=== PATIENT | male | born 1990 | race Two or more races ===

== ENCOUNTER 2020-03-07 09:29 | Outpatient (REF) | payer OTHER, SELFPAY ==
--- NOTE | 2020-03-07 10:13 | XR_ITS ---
EXAMINATION: Left KNEE AND LUMBAR SPINE X-RAY CLINICAL INFORMATION: Pain COMPARISON: None TECHNIQUE: 4 views of the left knee and 3 views of the lumbar spine FINDINGS: Left knee: Bone alignment is normal. No fracture or dislocation is seen. The joint spaces are normal. There is no joint effusion. Lumbar spine: Bone alignment is normal. No fracture or dislocation is seen. Disc spaces are normal. XR/XR knee LT 3V IMPRESSION: Unremarkable exams.
--- NOTE | 2020-03-07 10:13 | XR_ITS ---
EXAMINATION: Left KNEE AND LUMBAR SPINE X-RAY CLINICAL INFORMATION: Pain COMPARISON: None TECHNIQUE: 4 views of the left knee and 3 views of the lumbar spine FINDINGS: Left knee: Bone alignment is normal. No fracture or dislocation is seen. The joint spaces are normal. There is no joint effusion. Lumbar spine: Bone alignment is normal. No fracture or dislocation is seen. Disc spaces are normal. XR/XR lumbar spine 2-3V IMPRESSION: Unremarkable exams.
[2020-03-07 10:22] LABS: MANUAL DIFF FLAG NO
[2020-03-07 10:27] LABS: Basophils Absolute Auto 0.1 X10*3/uL (0.0-0.2); Basophils Percent Auto 1.1 % (0-2); Eosinophils Absolute Auto 0.4 X10*3/uL (0.0-0.4); Eosinophils Percent Auto 3.6 % (0-4); Hematocrit 48.4 % (42-52); Hemoglobin 16.2 g/dl (14.0-18.0); Imm Gran Abs Auto 0.11 X10*3/uL (0.00-0.03); Lymphocytes Absolute Auto 3.8 X10*3/uL (1.2-4.9); Lymphocytes Percent Auto 33.3 % (20-40); Mean Corpuscular HGB Conc 33.5 g/dl (31.0-36.0); Mean Corpuscular Hemoglobin 29.3 pg (27.0-33.0); Mean Corpuscular Volume 87.5 fL (80-98); Mean Platelet Volume 10.9 fL (9.4-12.4); Monocytes Absolute Auto 0.7 X10*3/uL (0.1-1.2); Monocytes Percent Auto 6.3 % (2-11); Neutrophils Absolute Auto 6.2 X10*3/uL (2.0-8.3); Neutrophils Percent Auto 54.7 % (45-73); Platelet Count 323 X10*3/uL (160-400); Red Blood Count 5.53 X10*6/uL (4.60-5.80); Red Cell Distribution Width 12.6 % (11.0-16.0); White Blood Count 11.4 X10*3/uL (4.8-10.8)
[2020-03-07 10:54] LABS: Alanine Aminotransferase 74 U/L (0-40); Albumin Level 4.9 g/dL (3.5-5.0); Alkaline Phosphatase 92 U/L (39-117); Anion Gap 12 (12-20); Aspartate Amino Transferase 29 U/L (5-37); Bilirubin Total 0.4 mg/dL (0.0-1.0); Blood Urea Nitrogen 17 mg/dL (9-16); Calcium 9.6 mg/dL (8.4-10.2); Carbon Dioxide 29 mmol/L (22-29); Chloride 104 mmol/L (96-108); Cholesterol 204 mg/dL; Estimated Glomerular Filt Rate > 60; Glucose Fasting 101 mg/dL (60-99); HDL Cholesterol 35 mg/dL; LDL Cholesterol Calculated 136 mg/dl; Potassium 5.4 mmol/l (3.3-5.1); Sodium 140 mmol/L (135-145); Total Protein 8.2 g/dL (6.5-8.0); Triglycerides 168 mg/dL
[2020-03-07 11:00] LABS: Glucose Urine UA NEG (NEG); Leukocyte Esterase Urine NEG (NEG); Nitrite Urine NEG (NEG); PH 5.5 (5.0-8.0); Specific Gravity - Urine 1.025 (1.005-1.025); Urine Blood NEG (NEG); Urine Ketones NEG (NEG); Urine Protein NEG (NEG-TRACE)
[2020-03-07 11:02] LABS: Appearance Urine CLEAR; Color Urine YELLOW
[2020-03-07 11:14] LABS: TSH reflex Free T4 1.45 mIU/mL (0.32-4.0)
[2020-03-07 12:21] LABS: Erythrocyte Sedimentation Rate 5 MM/HR (0-15)
== END 2020-03-07 09:30 | disposition home or self-care (01) ==
LOC: HO.LAB 09:29
PROVIDERS: PCP Internal Medicine; Visit Provider Internal Medicine
DX: M25.562 Pain in left knee (principal); M54.5 Low back pain; I10 Essential (primary) hypertension; E66.01 Morbid (severe) obesity due to excess calories; Z68.43 Body mass index [BMI] 50.0-59.9, adult
CPT/HCPCS: 36415; 72100; 73562; 80053; 80061; 81003; 84443; 85025; 85652

== ENCOUNTER 2020-09-03 11:36 | Outpatient (REF) | payer OTHER, SELFPAY | END 2020-09-03 11:37 | disposition home or self-care (01) | LOC: HO.LAB 11:36 | PROVIDERS: PCP Internal Medicine; Visit Provider Internal Medicine | DX: Z20.822 Contact with and (suspected) exposure to COVID-19 (principal) | CPT/HCPCS: C9803; U0003; U0005 ==

== ENCOUNTER 2021-02-18 09:43 | Outpatient (REF) | payer OTHER, SELFPAY ==
--- NOTE | ~2021-02-18 | US_ITS ---
EXAMINATION: US ABDOMEN COMPLETE CLINICAL INFORMATION: Abnormal levels of other serum enzymes. COMPARISON: None TECHNIQUE: Real-time imaging of the abdominal viscera. FINDINGS: PANCREAS: Not visualized due to bowel gas ABDOMINAL AORTA: Not well visualized due to bowel gas INFERIOR VENA CAVA: Not well visualized due to bowel gas LIVER: The liver is normal in size and shape.Liver echotexture is increased. There is a hypoechoic area adjacent to the gallbladder, a characteristic location of focal fatty sparing. No other focal liver lesion is seen. There is no biliary duct dilatation. GALLBLADDER: Normal. The gallbladder is physiologically distended without evidence of stones, sludge, polyps, wall thickening or pericholecystic fluid. COMMON BILE DUCT: Call and difficult and slightly dilated measuring 0.8 cm in diameter. RIGHT KIDNEY: Normal. No hydronephrosis. No renal calculi or focal parenchymal lesions. The kidney measures 10.4 cm in maximum dimension. LEFT KIDNEY: Normal. No hydronephrosis. No renal calculi or focal parenchymal lesions. The kidney measures 11.0 cm in maximum dimension. SPLEEN: Normal. The spleen measures 11.5 cm in maximum dimension. FREE FLUID: None. US/US abdomen complete IMPRESSION: Echogenic liver probably representing fatty infiltration. Slightly dilated common bile duct. Nonvisualization of the pancreas IVC.
== END 2021-02-18 09:44 | disposition home or self-care (01) ==
LOC: HO.US 09:43
PROVIDERS: Visit Provider Physician Assistant
DX: R74.8 Abnormal levels of other serum enzymes (principal)
CPT/HCPCS: 76700

== ENCOUNTER 2021-03-14 09:23 | Outpatient (REF) | payer OTHER, SELFPAY ==
[2021-03-14 10:10] LABS: Hematocrit 48.8 % (42.0-52.0); Hemoglobin 16.4 g/dl (14.0-18.0); Mean Corpuscular HGB Conc 33.6 g/dl (31.0-36.0); Mean Corpuscular Hemoglobin 29.3 pg (27.0-33.0); Mean Corpuscular Volume 87.1 fL (80.0-98.0); Platelet Count 331 X10*3/uL (160-400); Red Cell Distribution Width 12.9 % (11.0-16.0); White Blood Count 8.7 X10*3/uL (4.8-10.8)
[2021-03-14 10:30] LABS: Estimated Average Glucose 105 mg/dL; Hemoglobin A1C 150.7092 umol/L; Hemoglobin A1c % 5.3 %
[2021-03-14 10:34] LABS: Creatinine Urine 192.09 mg/dL; Microalbum/Creatinine Ratio Ur 8.8 ug/mg cr
[2021-03-14 10:39] LABS: Alanine Aminotransferase 83 U/L (0-40); Albumin Level 4.5 g/dL (3.5-5.0); Alkaline Phosphatase 91 U/L (39-117); Anion Gap 10 (12-20); Aspartate Amino Transferase 36 U/L (5-37); Bilirubin Total 0.5 mg/dL (0.0-1.0); Blood Urea Nitrogen 13 mg/dL (9-16); Calcium 9.6 mg/dL (8.4-10.2); Carbon Dioxide 28 mmol/L (22-29); Chloride 104 mmol/L (96-108); Cholesterol 217 mg/dL; Estimated Glomerular Filt Rate > 60; Glucose Fasting 98 mg/dL (60-99); HDL Cholesterol 30 mg/dL; LDL Cholesterol Calculated 163 mg/dl; Potassium 4.9 mmol/L (3.3-5.1); Sodium 137 mmol/L (135-145); Total Protein 7.9 g/dL (6.5-8.0); Triglycerides 124 mg/dL
[2021-03-14 11:00] LABS: TSH reflex Free T4 1.78 uIU/mL (0.32-4.0)
== END 2021-03-14 09:24 | disposition home or self-care (01) ==
LOC: HO.LAB 09:23
PROVIDERS: PCP Physician Assistant; Visit Provider Physician Assistant
DX: I10 Essential (primary) hypertension (principal)
CPT/HCPCS: 36415; 80053; 80061; 82043; 83036; 84443; 85027

== ENCOUNTER 2022-05-27 11:25 | Outpatient (REF) | payer OTHER, SELFPAY ==
[2022-05-27 11:57] LABS: Hemoglobin 16.6 g/dl (14.0-18.0); Mean Corpuscular HGB Conc 34.6 g/dl (31.0-36.0); Mean Corpuscular Hemoglobin 29.9 pg (27.0-33.0); Mean Corpuscular Volume 86.3 fL (80.0-98.0); Mean Platelet Volume 10.7 fL (9.4-12.4); Platelet Count 330 X10*3/uL (160-400); Red Blood Count 5.56 X10*6/uL (4.60-5.80); Red Cell Distribution Width 12.9 % (11.0-16.0); White Blood Count 10.9 X10*3/uL (4.8-10.8)
[2022-05-27 12:37] LABS: Alanine Aminotransferase 67 U/L (0-40); Albumin Level 4.6 g/dL (3.5-5.0); Alkaline Phosphatase 89 U/L (39-117); Anion Gap 12 (12-20); Aspartate Amino Transferase 30 U/L (5-37); Bilirubin Total 0.8 mg/dL (0.0-1.0); Blood Urea Nitrogen 14 mg/dL (9-16); Calcium 9.5 mg/dL (8.4-10.2); Carbon Dioxide 28 mmol/L (22-29); Chloride 105 mmol/L (96-108); Estimated Glomerular Filt Rate > 60; Glucose Fasting 86 mg/dL (60-99); Potassium 4.8 mmol/L (3.3-5.1); Sodium 140 mmol/L (135-145); Total Protein 7.6 g/dL (6.5-8.0)
[2022-05-27 12:52] LABS: TSH reflex Free T4 1.69 uIU/mL (0.32-4.0)
== END 2022-05-27 11:26 | disposition home or self-care (01) ==
LOC: HO.LAB 11:25
PROVIDERS: PCP Physician Assistant; Visit Provider Physician Assistant
DX: E66.01 Morbid (severe) obesity due to excess calories (principal); Z68.38 Body mass index [BMI] 38.0-38.9, adult; I10 Essential (primary) hypertension
CPT/HCPCS: 36415; 80053; 84443; 85027

== ENCOUNTER → 2022-06-10 08:32 | Outpatient (REF) | payer OTHER, SELFPAY | LOC: HO.SL 08:32 | PROVIDERS: PCP Physician Assistant; Visit Provider Physician Assistant | DX: Z13.89 Encounter for screening for other disorder (principal) ==

== ENCOUNTER 2022-06-27 14:42 | Outpatient (REF) | payer OTHER, SELFPAY | END 2022-06-27 14:43 | disposition home or self-care (01) | LOC: HO.LAB 14:42 | PROVIDERS: Visit Provider Nurse Practitioner Family | DX: R82.998 Other abnormal findings in urine (principal) | CPT/HCPCS: 87086 ==

== ENCOUNTER 2022-06-27 15:02 | Emergency (ER) | payer OTHER, SELFPAY ==
--- NOTE | ~2022-06-27 | US_ITS ---
Indication: Pain EXAMINATION: Scrotal ultrasound and renal ultrasound. Real-time imaging by the jewel stripper. Findings; The right testicle is 3.8 x 2.7 x 3.1 cm. Volume 16.6 mL Left testicle is 3.7 x 2.8 x 3.3 cm. Volume 17.9 mL The testicles are normal in appearance. Normal arterial flow is documented. No lesion is seen. Bilateral hydroceles are seen which are mild. The epididymal structures are felt to be within normal limits. The right kidney is 9.9 x 5.3 x 4.9 cm. Within normal limits. No stone. No hydronephrosis. Left kidney is 10.3 x 5.4 x 6.2 cm. No hydronephrosis or stone. Within normal limits. US/US renal BI IMPRESSION: Bilateral small hydroceles however the testicles appear to be within normal limits bilaterally. No evidence of hydronephrosis in the kidneys
--- NOTE | ~2022-06-27 | US_ITS ---
Indication: Pain EXAMINATION: Scrotal ultrasound and renal ultrasound. Real-time imaging by the job press feeder. Findings; The right testicle is 3.8 x 2.7 x 3.1 cm. Volume 16.6 mL Left testicle is 3.7 x 2.8 x 3.3 cm. Volume 17.9 mL The testicles are normal in appearance. Normal arterial flow is documented. No lesion is seen. Bilateral hydroceles are seen which are mild. The epididymal structures are felt to be within normal limits. The right kidney is 9.9 x 5.3 x 4.9 cm. Within normal limits. No stone. No hydronephrosis. Left kidney is 10.3 x 5.4 x 6.2 cm. No hydronephrosis or stone. Within normal limits. US/US scrotum doppler IMPRESSION: Bilateral small hydroceles however the testicles appear to be within normal limits bilaterally. No evidence of hydronephrosis in the kidneys
--- NOTE | ~2022-06-27 | US_ITS ---
Indication: Pain EXAMINATION: Scrotal ultrasound and renal ultrasound. Real-time imaging by the retail selling specialist. Findings; The right testicle is 3.8 x 2.7 x 3.1 cm. Volume 16.6 mL Left testicle is 3.7 x 2.8 x 3.3 cm. Volume 17.9 mL The testicles are normal in appearance. Normal arterial flow is documented. No lesion is seen. Bilateral hydroceles are seen which are mild. The epididymal structures are felt to be within normal limits. The right kidney is 9.9 x 5.3 x 4.9 cm. Within normal limits. No stone. No hydronephrosis. Left kidney is 10.3 x 5.4 x 6.2 cm. No hydronephrosis or stone. Within normal limits. US/US scrotum IMPRESSION: Bilateral small hydroceles however the testicles appear to be within normal limits bilaterally. No evidence of hydronephrosis in the kidneys
[2022-06-27 15:15] VITALS: BP 171/96; PULSE 88; RESP 18; TEMP 36.6; O2SAT 97; BMI 35.8
--- NOTE | 2022-06-27 15:16 | ED.MALEGU ---
HPI - Male Genitourinary General Chief complaint: Urogenital-Male <LUIS Hoffman - Last Filed: 06/27/22 15:19> Stated complaint: xray for kidney, testicle pain on L side <LUIS Hoffman - Last Filed: 06/27/22 15:19> Time Seen by Provider: 06/27/22 16:51 <LUIS Hoffman - Last Filed: 06/27/22 15:19> Source: patient <Haresh Carrillo MD - Last Filed: 06/27/22 18:01> Mode of arrival: ambulatory <Haresh Carrillo MD - Last Filed: 06/27/22 18:01> Limitations: no limitations <Haresh Carrillo MD - Last Filed: 06/27/22 18:01> History of Present Illness HPI Narrative: Patient complaining of left testicular pain for last 4 days also complaining of low back pain no dysuria no frequency no hematuria no history of kidney stone no history of penile discharge no history of trauma pain is intermittent off and on very mild no nausea no vomiting <Haresh Carrillo MD - Last Filed: 06/27/22 18:01> Related Data Home medications: Previous Rx's Medication Instructions Recorded clotrimazole 1 % topical cream 1 appl topical BID 30 days #45 05/27/22 grams losartan 25 mg tablet 25 mg PO DAILY 90 days #90 tabs 05/27/22 omeprazole 20 mg capsule,delayed 20 mg PO DAILY #90 caps 05/27/22 release ibuprofen 600 mg tablet 600 mg PO Q6H PRN fever or pain 06/27/22 #30 tabs <LUIS Hoffman - Last Filed: 06/27/22 15:19> Allergies/Adverse reactions: Allergies Allergy/AdvReac Type Severity Reaction Status Date / Time No Known Allergies Allergy Verified 06/27/22 15:18 <LUIS Hoffman - Last Filed: 06/27/22 15:19> Review of Systems Review of Systems: Yes all other systems are reviewed and are negative <Haresh Carrillo MD - Last Filed: 06/27/22 18:01> PMFSH Past Medical History Medical History: Medical History Benign essential hypertension COVID-19 GERD (gastroesophageal reflux disease) Low back pain Morbid obesity with BMI of 50.0-59.9, adult <LUIS Hoffman - Last Filed: 06/27/22 15:19> Surgical History: Surgical History No pertinent past surgical history <LUIS Hoffman - Last Filed: 06/27/22 15:19> Family History Family History: Family History Father Diabetes Hypertension Hyperlipidemia Mother Hypertension Brother No problems noted. Sister In good health Son In good health Daughter In good health <LUIS Hoffman - Last Filed: 06/27/22 15:19> Social History Social History: Social History Housing: Apartment Alcohol intake: never Patient Tobacco Use Status: Never used Tobacco Tobacco use type: Cigarette Smoked in Last 30 Days: No e-Cigarette/Vaping Use: Never Used Second Hand Smoke Exposure: No Use of substances other than those prescribed or required for medical reasons: No Advance Directives: No Advance Directives Information Provided: Yes service: No Current occupational status: unemployed Cognitive needs: No Hearing needs: No Vision needs: No <LUIS Hoffman - Last Filed: 06/27/22 15:19> Physical Exam Vital Signs: Vital Signs: Last Vital Signs Temp 97.8 F 06/27/22 15:15 Pulse 88 06/27/22 15:15 Resp 18 06/27/22 15:15 BP 171/96 H 06/27/22 15:15 Pulse Ox 97 06/27/22 15:15 O2 Del Method Room Air 06/27/22 15:15 BMI result Body Mass Index 35.8 <LUIS Hoffman - Last Filed: 06/27/22 15:19> Vital Signs: Last Vital Signs Temp 97.8 F 06/27/22 15:15 Pulse 88 06/27/22 15:15 Resp 18 06/27/22 15:15 BP 171/96 H 06/27/22 15:15 Pulse Ox 97 06/27/22 15:15 O2 Del Method Room Air 06/27/22 15:15 BMI result Body Mass Index 35.8 <Haresh Carrillo MD - Last Filed: 06/27/22 18:01> GI: Inspection: Yes normal to inspection <Haresh Carrillo MD - Last Filed: 06/27/22 18:01> Palpation (GI): Soft to palpation and nontender <Haresh Carrillo MD - Last Filed: 06/27/22 18:01> Auscultation: normal bowel sounds <Haresh Carrillo MD - Last Filed: 06/27/22 18:01> : General: Yes Bimanual renal exam normal bilaterally and Yes no CVA tenderness <Haresh Carrillo MD - Last Filed: 06/27/22 18:01> Male General Exam: Yes normal external exam <Haresh Carrillo MD - Last Filed: 06/27/22 18:01> Penis: normal penis <Haresh Carrillo MD - Last Filed: 06/27/22 18:01> Meatus: meatus normal <Haresh Carrillo MD - Last Filed: 06/27/22 18:01> Scrotum: scrotum normal <Haresh Carrillo MD - Last Filed: 06/27/22 18:01> Testes: Testes normal, testicular lie normal and epididymides normal <Haresh Carrillo MD - Last Filed: 06/27/22 18:01> Back/Spine/Pelvis: Back: no CVA tenderness <Haresh Carrillo MD - Last Filed: 06/27/22 18:01> Course Course Course Narrative: RME: 31yo M w/PMHx HLD, SHIRA, GERD, HTN, presenting to the ED complaining of intermittent left testicular pain radiating to LLQ and left low back x 4 days. Reports associated dysuria. Denies nausea, vomiting, penile discharge, testicular swelling, new sexual partner/concern for STI Labs, UA, CT NG, testicular & renal ultrasound ordered Full HPI, ROS and PE to be performed by primary ED provider. <LUIS Hoffman - Last Filed: 06/27/22 15:19> Medical Decision Making Medical Decision Making MDM Narrative: Patient scrotal ultrasound negative for any torsion has slight hydrocele no hydronephrosisdischarge patient home on ibuprofen <Haresh Carrillo MD - Last Filed: 06/27/22 18:01> Lab Data [facility] Lab Attestation statement: I reviewed the patient's lab results. <Haresh Carrillo MD - Last Filed: 06/27/22 18:01> Labs: Lab Results 06/27/22 Range/Units 17:34 Urine Color Yellow Urine Appearance Clear Urine pH 6.0 (5.0-9.0) Ur Specific [place] >= 1.030 H (1.005-1.025) Urine Protein Trace (Neg-Trace) mg/dL Urine Glucose (UA) Negative (Negative) mg/dL Urine Ketones Trace (Negative) mg/dL Urine Blood Negative (Negative) Urine Nitrite Negative (Negative) Ur Leukocyte Esterase Negative (Negative) <LUIS Hoffman - Last Filed: 06/27/22 15:19> Lab Results 06/27/22 Range/Units 17:34 Urine Color Yellow Urine Appearance Clear Urine pH 6.0 (5.0-9.0) Ur Specific [place] >= 1.030 H (1.005-1.025) Urine Protein Trace (Neg-Trace) mg/dL Urine Glucose (UA) Negative (Negative) mg/dL Urine Ketones Trace (Negative) mg/dL Urine Blood Negative (Negative) Urine Nitrite Negative (Negative) Ur Leukocyte Esterase Negative (Negative) <Haresh Carrillo MD - Last Filed: 06/27/22 18:01> Radiology Impression Discussion of test interpretation with radiology: I have reviewed the radiologist's reading. <Haresh Carrillo MD - Last Filed: 06/27/22 18:01> Radiologist Impression: US/US scrotum IMPRESSION: Bilateral small hydroceles however the testicles appear to be within normal limits bilaterally. ? No evidence of hydronephrosis in the kidneys <Haresh Carrillo MD - Last Filed: 06/27/22 18:01> Discharge Plan Discharge Clinical Impression: Pain in scrotum <LUIS Hoffman - Last Filed: 06/27/22 15:19> Patient Disposition: Home, Self-Care <LUIS Hoffman - Last Filed: 06/27/22 15:19> Instructions: Scrotal Pain (ED) <LUIS Hoffman - Last Filed: 06/27/22 15:19> Additional Instructions: Cause of pain is not clear Your ultrasound is negative your urine is also negative Drink plenty of fluids Tylenol/Motrin for pain Follow-up with your PCP <LUIS Hoffman - Last Filed: 06/27/22 15:19> Prescriptions: New ibuprofen 600 mg tablet 600 mg PO Q6H PRN (Reason: fever or pain) Qty: 30 0RF No Action omeprazole 20 mg capsule,delayed release(DR/EC) 20 mg PO DAILY Qty: 90 1RF losartan 25 mg tablet 25 mg PO DAILY 90 Days Qty: 90 1RF clotrimazole 1 % cream 1 appl topical BID 30 Days Qty: 45 1RF <LUIS Hoffman - Last Filed: 06/27/22 15:19>
[2022-06-27 17:45] LABS: Appearance Urine Clear; Color Urine Yellow; Glucose Urine UA Negative (Negative); Leukocyte Esterase Urine Negative (Negative); Nitrite Urine Negative (Negative); Specific Gravity - Urine >= 1.030 (1.005-1.025); Urine Blood Negative (Negative); Urine Ketones Trace mg/dL (Negative); Urine Protein Trace mg/dL (Neg-Trace)
[2022-06-27 18:06] VITALS: BP 141/87; PULSE 71; RESP 12; TEMP 37.4; O2SAT 98
[2022-06-28 04:20] LABS: CT PCR NOT DETECTED (Not Detect.); NG PCR NOT DETECTED (Not Detect.)
== END 2022-06-27 18:08 | disposition home or self-care (01) ==
PROVIDERS: Physician Assistant; Emergency Provider Internal Medicine; PCP Physician Assistant
DX: N50.82 Scrotal pain (principal); I10 Essential (primary) hypertension; E78.5 Hyperlipidemia, unspecified; Z79.899 Other long term (current) drug therapy
CPT/HCPCS: 0353U; 76775; 76870; 81003; 93975; 99284

== ENCOUNTER → 2022-07-02 14:03 | Outpatient (REF) | payer OTHER, SELFPAY | LOC: HO.SL 14:03 | PROVIDERS: PCP Physician Assistant; Visit Provider Physician Assistant | DX: Z13.89 Encounter for screening for other disorder (principal) | CPT/HCPCS: 95806 ==

== ENCOUNTER 2022-12-30 12:40 | Outpatient (AMB) | payer OTHER, SELFPAY ==
[2022-12-30 12:46] VITALS: BP 120/92; PULSE 94; O2SAT 97; BMI 34.2
--- NOTE | 2022-12-30 12:46 | A.OFFPC_ITS ---
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 Accompanied by: Self / Same As Patient Allergies No Known Allergies Allergy (Verified 12/30/22 13:43) Medication List - Last Reconciled 12/30/22 by Onofre Parekh PA-C losartan 25 mg PO DAILY 90 days omeprazole 20 mg PO DAILY Tobacco use date assessed: 05/27/22 Dental Screening Dental Screen Date: 12/30/22 Did you have a dental visit in the last 12 months?: Yes Did you have a dental problem in the last 6 months where you did not have access to dental care?: No Was dental information given to patient?: Patient has dentist HPI Annual Exam 2 HPI Details Patient is a 32-year-old male here today for a PE.? Patient has a past medical history significant for hypertension, obesity, GERD, enzymes due to fatty liver disease. . Concern--> would like seen paperwork filled out for SSI. Hypertension:? Blood pressure acceptable today in office continues on losartan with good effect. .. GERD: Uses PPI therapy with good effect on his GERD symptoms. .. Borderline high cholesterol: Most recent lipid panel showing borderline high total cholesterol. Continues to work on lifestyle modifications to reduce his weight and high cholesterol foods. .. Obesity: He does understand his BMI is over 30 will continue working on being more physically active and better eating habits to reduce his weight. .. Vaccine : decline COVID vaccine and flu vaccine. Up-to-date with tetanus vaccine [facility] Medical History (Updated 12/30/22 @ 14:37 by Onofre Parekh PA-C) Tinea pedis COVID-19 Low back pain Morbid obesity with BMI of 50.0-59.9, adult GERD (gastroesophageal reflux disease) Benign essential hypertension Surgical History No pertinent past surgical history Family History Father Diabetes Hypertension Hyperlipidemia Mother Hypertension Brother No problems noted. Sister In good health Son In good health Daughter In good health Social History (Updated 12/30/22 @ 13:47 by Onofre Parekh PA-C) Housing: Apartment Alcohol intake: never Patient Tobacco Use Status: Never used Tobacco Tobacco use type: Cigarette e-Cigarette/Vaping Use: Never Used Second Hand Smoke Exposure: No Substance Use Type: Marijuana service: No Current occupational status: unemployed Cognitive needs: No Hearing needs: No Vision needs: No Questionnaire Thrive Questionnaire Date Thrive assessed: 05/27/22 TONE-7 AMB Questionnaire TONE-7 Date TONE - 7 assessed: 05/27/22 Source: Developed by Drs. Dash Slater, Keyana Morley, nAdry Oneill and colleagues, with an educational camden from [employer]. Review of Systems Const Denies body aches, Denies chills, Denies excessive sweating, Denies fatigue, Denies fever(s) and Denies headache(s) Eyes Denies blurry vision ENT Denies dysphagia, Denies vertigo, Denies dizziness, Denies headache(s), Denies hearing loss and Denies tinnitus Card Denies chest pain, Denies chest pain with activity, Denies syncope, Denies irregular heart rhythm and Denies dyspnea Resp Denies chest congestion, Denies cough, Denies hemoptysis, Denies dyspnea and Denies wheezing GI Denies abdominal pain, Denies melena, Denies hematochezia, Denies coffee ground emesis, Denies dysphagia, Denies diarrhea, Denies nausea and Denies vomiting Denies difficulty urinating, Denies dysuria, Denies urinary frequency, Denies urinary hesitancy and Denies urinary urgency Musc Denies arthralgias, Denies limited range of motion, Denies muscle cramps and Denies muscle weakness Skin/Breast Denies rash and Denies skin ulcer Neuro Denies Abnormal speech present, Denies confusion, Denies vertigo, Denies dizziness, Denies syncope, Denies headache(s), Denies memory loss and Denies seizure-like activity Psych Denies anxiety, Denies confusion, Denies depression, Denies memory loss, Denies panic attacks and Denies paranoia Endo Denies excessive sweating, Denies fatigue, Denies flushing, Denies polydipsia and Denies polyuria Aller/Immun Denies wheezing Physical exam (Primary Care) Vital Signs: Last Vital Signs Pulse 94 12/30/22 12:46 BP 120/92 H 12/30/22 12:46 Pulse Ox 97 12/30/22 12:46 Oxygen Delivery Method Room Air 12/30/22 12:46 BMI result Body Mass Index 34.2 BMI Assessment/Plan discussion: High Tobacco/Smoking Status: Tobacco use Status Tobacco use date assessed 05/27/22 12/30/22 12:48 Patient Tobacco Use Status Never used Tobacco 12/30/22 12:48 Tobacco use type Cigarette 12/30/22 12:48 e-Cigarette/Vaping Use Never Used 12/30/22 12:48 Thrive Assessment: Date of Thrive Assessment Date Thrive assessed 05/27/22 12/30/22 12:48 Const Other: OBESE General: cooperative, comfortable, no acute distress, alert and awake; No confusion Orientation/consciousness: oriented to person, oriented to place, patient oriented x3 and No confusion HENMT Head: Yes normocephalic Ears: external ears normal and TM's normal bilaterally Face and sinus: No sinus tenderness Mouth: Normal oral and palatal mucosa present and tongue normal Teeth and gingiva: dentition normal and gingiva normal Throat: Yes posterior oropharynx normal, Yes tonsils normal and Yes uvula midline Eyes Conjunctivae: conjunctivae normal Sclerae: sclerae normal Pupils: Equal, round and reactive pupils present EOM: EOMs intact bilaterally Direct Ophthalmoscopy: No no photophobia Neck Neck: Yes no lymphadenopathy, No tender and Yes no JVD Thyroid: Thyroid normal Carotids: no bruits Chest Chest palpation & inspection: no tenderness Resp Effort & Inspection: normal respiratory effort, no audible wheezes, not labored and no stridor Auscultation: no crackles, no rales, no rhonchi and no wheezes Cardio Jugular venous distension: no JVD Rate: regular rate, not bradycardic and not tachycardic Rhythm: regular rhythm Bruits: no carotid bruits Peripheral pulses: Peripheral pulses 2+ throughout GI Inspection: Yes normal to inspection, No abdominal wall ecchymosis and No visible herniation Palpation (GI): Soft to palpation, nontender, no guarding, not rigid and No hepatosplenomegaly present Auscultation: normoactive bowel sounds General: Yes no CVA tenderness Back/Spine/Pelvis Back: no CVA tenderness and No back tenderness Cervical Spine: cervical ROM normal Thoracic/Lumbar Spine: thoracic and lumbar spine normal to inspection, straight leg raise negative bilaterally, No thoraco-lumbar ROM limited and No lumbar spinal tenderness Skin Lesions: no lesions Rashes: no rashes Wounds: no wounds Neuro General: oriented to person, oriented to place, patient oriented x3, CN's II-XI intact bilaterally and No confusion Cranial nerves: Yes Equal, round and reactive pupils present and Yes Normal accommodation reflex present Cognition (Neuro): normal cognition Speech: No Abnormal speech present Gait exam (Neuro): Normal gait present Motor exam (neuro): 5/5 motor strength present throughout Extrem Right upper extremity: full ROM; no cyanosis Left upper extremity: full ROM; no cyanosis Right lower extremity: no edema Left lower extremity: no edema Psych Appearance: grossly normal Mental Status: mental status grossly normal Affect: normal affect Attitude: cooperative Thought process: Normal thought process present Assessment and Plan Assessment & Plan (1) Adult general medical exam: Code(s): Z00.00 - Encounter for general adult medical examination without abnormal findings (2) Benign essential hypertension: Code(s): I10 - Essential (primary) hypertension Plan: Patient's blood pressure acceptable today in office. Will continue his current dose of losartan with goal blood pressure to be below 140/90 (3) Obese: Code(s): E66.9 - Obesity, unspecified Qualifiers: Obesity type: due to excess calories Obesity classification: adult class 2 (BMI 35 - 39.9) Serious obesity comorbidity presence: with serious comorbidity Body mass index: BMI 38.0-38.9 Qualified Code(s): E66.01 - Morbid (severe) obesity due to excess calories; Z68.38 - Body mass index [BMI] 38.0- 38.9, adult Plan: Patient has lost weight since last office visit. He does understand his BMI is over 30 will continue working on being more physically active and adapting to better eating habits to reduce his weight (4) GERD (gastroesophageal reflux disease): Code(s): K21.9 - Gastro-esophageal reflux disease without esophagitis Qualifiers: Esophagitis presence: without esophagitis Qualified Code(s): K21.9 - Gastro-esophageal reflux disease without esophagitis Plan: Patient reports omeprazole effective for his GERD symptoms. Advised to avoid gastric irritants. (5) HLD (hyperlipidemia): Code(s): E78.5 - Hyperlipidemia, unspecified Qualifiers: Hyperlipidemia type: mixed hyperlipidemia Qualified Code(s): E78.2 - Mixed hyperlipidemia Plan: Patient's most recent lipid panel showing elevated total cholesterol. Has been working on low-cholesterol diet and weight reduction. Goal LDL to be below 160 Orders: Orders Microalbumin, Random (w Creat) Today I10 - Essential (primary) hypertension Lipid Panel Today E78.2 - Mixed hyperlipidemia Comprehensive [place]. Panel Fast Today I10 - Essential (primary) hypertension Medications: Refilled omeprazole 20 mg PO DAILY 90 caps 1RF K21.9 - Gastro-esophageal reflux disease without esophagitis losartan 25 mg PO DAILY 90 days 90 tabs 1RF I10 - Essential (primary) hypertension Coding Level of Care Code Est Pt Prev Care [id number]) Diagnoses Adult general medical exam Z00.00 Benign essential hypertension I10 Class 2 severe obesity due to excess calories with serious comorbidity and body mass index (BMI) of 38.0 to 38.9 in adult E66.01; Z68.38 Obesity type: due to excess calories Obesity classification: adult class 2 (BMI 35 - 39.9) Serious obesity comorbidity presence: with serious comorbidity Body mass index: BMI 38.0-38.9 Gastroesophageal reflux disease without esophagitis K21.9 Esophagitis presence: without esophagitis Mixed hyperlipidemia E78.2 Hyperlipidemia type: mixed hyperlipidemia
== END 2022-12-30 14:00 | disposition home or self-care (01) ==
PROVIDERS: Visit Provider Physician Assistant
DX: Z00.00 Encounter for general adult medical examination without abnormal findings (principal); I10 Essential (primary) hypertension; E66.01 Morbid (severe) obesity due to excess calories; Z68.38 Body mass index [BMI] 38.0-38.9, adult; K21.9 Gastro-esophageal reflux disease without esophagitis; E78.2 Mixed hyperlipidemia
CPT/HCPCS: 99395

== ENCOUNTER 2023-02-22 16:34 | Emergency (ER) | payer OTHER, SELFPAY ==
[2023-02-22 16:51] VITALS: BP 128/91; PULSE 129; RESP 18; TEMP 39.3; O2SAT 95; BMI 36.9
--- NOTE | 2023-02-22 16:55 | ED.GENADULT ---
HPI - General Adult General Chief complaint: Fever Stated complaint: vomiting,migraine,sore throat Time Seen by Provider: 02/22/23 17:10 Source: patient, RN notes reviewed and old records reviewed Mode of arrival: ambulatory History of Present Illness HPI narrative: 32-year-old male with a past medical history of obesity, GERD, HTN, presenting to the ED complaining of fever T-max 103 degrees, migraine headache, sore throat, dry cough, nausea and vomiting x3 days. Admits to taking Tylenol early this morning. Denies ear pain, difficulty/inability to swallow, chest pain/shortness of breath, recent travel Related Data Previous Rx's Medication Instructions Recorded losartan 25 mg tablet 25 mg PO DAILY 90 days #90 tabs 12/30/22 omeprazole 20 mg capsule,delayed 20 mg PO DAILY #90 caps 12/30/22 release amoxicillin 875 mg-potassium 1 tab PO BID 7 days #14 tabs 02/22/23 clavulanate 125 mg tablet Allergies Allergy/AdvReac Type Severity Reaction Status Date / Time No Known Allergies Allergy Verified 12/30/22 13:43 Review of Systems Review of Systems: Constitutional: +Fever, No Chills ENT/Mouth: No Ear Pain, + Nasal Congestion, No Sinus Pain, No Hoarseness, + sore throat, + Rhinorrhea, No Swallowing Difficulty Cardiovascular: No Chest Pain, No SOB Respiratory: + Cough, No Sputum, No Wheezing Gastrointestinal: + Nausea, + Vomiting, No Diarrhea, No Constipation, No Abdominal pain Musculoskeletal: No joint pain, No Myalgias, No Joint Swelling Skin: No Skin Lesions, No rash Neuro: No Weakness, No Numbness, No Paresthesias Yes all other systems are reviewed and are negative Constitutional: Constitutional: Reports as per [facility] Past Medical History Attestation statement: The following information was validated with the patient. Source: old records reviewed Onset Date is defined in the Problem List Problems that require an onset date and time if occurred within 24 hrs of arrival to the ED Aortic Dissection and Rupture; Neurologic impairment; Cardiopulmonary Arrest; Endotracheal Intubation; Insertion or Replacement of Mechanical Circulatory Assist Device Medical History Tinea pedis COVID-19 Low back pain Morbid obesity with BMI of 50.0-59.9, adult GERD (gastroesophageal reflux disease) Benign essential hypertension Surgical History No pertinent past surgical history Family History Family History Father Diabetes Hypertension Hyperlipidemia Mother Hypertension Brother No problems noted. Sister In good health Son In good health Daughter In good health Social History Social History Housing: Apartment Alcohol intake: never Patient Tobacco Use Status: Never used Tobacco Tobacco use type: Cigarette e-Cigarette/Vaping Use: Never Used Second Hand Smoke Exposure: No Substance Use Type: Marijuana Advance Directives: No Advance Directives Information Provided: No service: No Current occupational status: unemployed Cognitive needs: No Hearing needs: No Vision needs: No Physical Exam ED Vital Signs: Vital Signs - 24 hr 02/22/23 16:51 02/22/23 18:18 02/22/23 18:42 Temperature 102.7 F H 99.5 F Pulse Rate 129 H 125 H 103 H Respiratory Rate 18 16 Blood Pressure 128/91 H 157/83 H Pulse Oximetry 95 95 Oxygen Delivery Method Room Air Room Air BMI result Body Mass Index 36.9 Const General: cooperative, healthy appearing and no acute distress Orientation/consciousness: patient oriented x3 Limitations: no limitations HENMT Head: Yes normal to inspection and Yes atraumatic Ears: hearing grossly normal bilaterally, external ears normal, TM's normal bilaterally and mastoids normal General nose exam: Normal external nose present Face and sinus: Yes normal facial exam Mouth: no drooling Throat: Yes uvula midline, Yes abnormal tonsil (erythema), No peritonsillar mass, No uvula laterally displaced and No uvular edema Eyes General: appearance normal, both eyes and all related structures Pupils: Equal, round and reactive pupils present EOM: EOMs intact bilaterally Neck Neck: Yes normal visual inspection and Yes no meningeal signs Resp Effort & Inspection: normal respiratory effort and no respiratory distress Auscultation: clear to auscultation bilaterally, no crackles, no rhonchi and no wheezes Cardio Rate: regular rate Heart sounds: S1 normal heart sound present and S2 normal heart sound present GI Inspection: Yes normal to inspection Palpation (GI): Soft to palpation Skin Rashes: no rashes Wounds: no wounds Neuro General: patient oriented x3, gait normal, tone normal, moves all extremities, no meningeal signs, no focal motor deficits and CN's II-XI intact bilaterally Cranial nerves: Yes CN's II-XII intact bilaterally and Yes Equal, round and reactive pupils present Cognition (Neuro): normal cognition Gait exam (Neuro): Normal gait present Extrem General: Yes normal to inspection Course Course Course Narrative: RME: 32 yold male presents tot he ED for SOre throat, headache, fever, chills, and bodyaches. SARS, and strep ordred. Motrin and tyelnol ordered. For fever and tacycardia. -influenza A and rapid strep positive > patient given dose of oral Augmentin in the ED XR chest 1V IMPRESSION: Unremarkable examination. > repeat VS with mild improvement to fever to 99.5. Tachycardic to 125 > will obtain EKG. -1830--ED care transferred to [facility] pending EKG & repeat VS Medications Administered Discontinued Medications Generic Name Dose Route Start Last Admin Trade Name Brandon PRN Reason Stop Dose Admin Acetaminophen 975 mg 02/22/23 16:54 02/22/23 17:18 Acetaminophen 325 Mg Tablet PO 02/22/23 16:55 975 mg ONCE ONE Administration Amoxicillin/Clavulanate Potassium 875 mg 02/22/23 17:51 02/22/23 17:59 Amoxicillin/Potassium Clav 875 Mg Tablet PO 02/22/23 17:52 875 mg ONCE ONE Administration Ibuprofen 800 mg 02/22/23 16:53 02/22/23 17:18 Ibuprofen 800 Mg Tablet PO 02/22/23 16:54 800 mg ONCE ONE Administration Medical Decision Making Medical Decision Making [facility] Narrative: 32-year-old male with a past medical history of obesity, GERD, HTN, presenting to the ED complaining of fever T-max 103 degrees, migraine headache, sore throat, dry cough, nausea and vomiting x3 days. Admits to taking Tylenol early this morning. On exam febrile to 102.7, tachycardic likely from fever, tonsillar erythema noted, uvula midline, talking in complete sentences, lungs CTA. Concern for viral illness vs strep pharyngitis. Rule out pneumonia. Lower suspicion for COMMUNICATION COORDINATOR/retropharyngeal abscess, no evidence of otitis. Low suspicion for severe sepsis Plan: Viral testing, rapid strep, CXR, antipyretics Please refer to course for remaining clinical decision making, interpretation of labs/imaging results, and discussions with consultants and/or family members. Differential Diagnosis Differential Diagnoses: The differential diagnosis associated with the presentation includes As above Lab Data MDM Lab Attestation statement: I reviewed the patient's lab results. Labs: Lab Results 02/22/23 Range/Units 16:58 Influenza Type A (PCR) POSITIVE A (Negative) Influenza Type B (PCR) NEGATIVE (Negative) RSV RNA Qual (PCR) NEGATIVE (Negative) SARS-CoV-2 RNA (RT-PCR) NEGATIVE (Negative) S. pyogenes GrpA FARZANA Positive A (Negative) Independent Interpretation I performed an independent interpretation of an: Plain X-Ray Radiology Impression Discussion of test interpretation with radiology: I have reviewed the radiologist's reading. External Record Review External record reviewed: Inpatient record, Office record, Outpatient record, Prior outpatient labs, Prior outpatient radiology, Primary care record and Outside ED record Tests considered The following testing was considered but not selected: As above Prescription Management I considered prescription management with: Pain Medication, Antiviral and Antibiotic Discharge Plan Discharge Clinical Impression: Strep throat, Influenza A Patient Disposition: Home, Self-Care Instructions: Strep Throat (DC), Influenza (DC) Additional Instructions: You have the flu and strep throat No antibiotics are indicated at this time Make sure you are staying hydrated. Drink plenty of fluids. Rest Alternate Tylenol and Motrin at home as needed for body aches and fever Follow-up with your doctor. If symptoms persist or worsen return to the emergency department Prescriptions: New amoxicillin-pot clavulanate 875-125 mg tablet 1 tab PO BID 7 Days Qty: 14 0RF No Action losartan 25 mg tablet 25 mg PO DAILY 90 Days Qty: 90 1RF omeprazole 20 mg capsule,delayed release(DR/EC) 20 mg PO DAILY Qty: 90 1RF Referrals: Onofre Parekh PA-C [Primary Care Provider] - 5 days Stand Alone Forms: Work/School Release Print Language: Yakut
[2023-02-22 18:18] VITALS: BP 157/83; PULSE 125; RESP 16; TEMP 37.5; O2SAT 95
[2023-02-22 18:42] VITALS: PULSE 103
== END 2023-02-22 19:02 | disposition home or self-care (01) ==
PROVIDERS: Emergency Provider Student in an Organized Health Care Education/Training Program; PCP Physician Assistant
DX: J10.1 Influenza due to other identified influenza virus with other respiratory manifestations (principal); J02.0 Streptococcal pharyngitis; R50.9 Fever, unspecified; G43.909 Migraine, unspecified, not intractable, without status migrainosus; R11.2 Nausea with vomiting, unspecified; I10 Essential (primary) hypertension; Z20.822 Contact with and (suspected) exposure to COVID-19
CPT/HCPCS: 0241U; 71045; 87651; 93005; 99283; 99284

== ENCOUNTER → 2023-02-22 18:20 | Outpatient (BNV) | payer OTHER, SELFPAY | PROVIDERS: Emergency Provider Student in an Organized Health Care Education/Training Program; PCP Physician Assistant; Visit Provider Internal Medicine Cardiovascular Disease | DX: R00.0 Tachycardia, unspecified (principal) | CPT/HCPCS: 93010 ==

== ENCOUNTER 2024-01-04 13:27 | Outpatient (AMB) | payer OTHER, SELFPAY ==
--- NOTE | 2024-01-04 13:29 | MHC.PC.OV ---
Vital Signs 01/04/24 13:41 Height 5 ft 9 in Weight 272 lb BMI 40.2 BP 134/88 Blood Pressure Location Lt brachial Position Sitting Pulse 84 Pulse Source Palpation Intake Visit Reasons: pe Intake Note: Patient is here today for a physical. 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 Patient has a past medical history significant for hypertension, obesity, GERD, enzymes due to fatty liver disease. . Concern--> continues to have difficulty with skin rash over his feet bilaterally. Has tried topical antifungal treatment though has failed. The S changed to socks and shoes multiple times though has not been effective. Has also noted dry flaky scalp skin over the last few months. Has tried [id number] dandruff shampoos though have not been effective. PLAN: Will try oral antifungal for 12 weeks. Hypertension:? Blood pressure acceptable today in office continues on losartan with good effect. .. GERD: Uses PPI therapy with good effect on his GERD symptoms. .. Borderline high cholesterol: Most recent lipid panel showing borderline high total cholesterol. Continues to work on lifestyle modifications to reduce his weight and high cholesterol foods. .. Obesity: Unfortunately gained more weight since last office visit. Now BMI of over 40. He does understand his BMI is over 30 will continue working on being more physically active and better eating habits to reduce his weight. .. Vaccine : decline COVID vaccine and flu vaccine. Up-to-date with tetanus vaccine [facility] Medical History Tinea pedis COVID-19 Low back pain Morbid obesity with BMI of 50.0-59.9, adult GERD (gastroesophageal reflux disease) Benign essential hypertension Surgical History No pertinent past surgical history Family History Father Diabetes Hypertension Hyperlipidemia Mother Hypertension Brother No problems noted. Sister In good health Son In good health Daughter In good health Social History Housing: Apartment Alcohol intake: never Patient Tobacco Use Status: Never used Tobacco Tobacco use type: Cigarette e-Cigarette/Vaping Use: Never Used Second Hand Smoke Exposure: No Substance Use Type: Marijuana service: No Current occupational status: unemployed Current occupational exposures/hazards: No Cognitive needs: No Hearing needs: No Vision needs: No Questionnaire PHQ-9 Over the last 2 weeks, how often have you been bothered by any of the following problems? 1. Little interest or pleasure in doing things: not at all 2. Feeling down, depressed, or hopeless: not at all 3. Trouble falling or staying asleep, or sleeping too much: several days 4. Feeling tired or having little energy: not at all 5. Poor appetite or overeating: not at all 6. Feeling bad about yourself - or that you are a failure or have let yourself or your family down: not at all 7. Trouble concentrating on things, such as reading the newspaper or watching television: not at all 8. Moving or speaking so slowly that other people could have noticed. Or the opposite - being so fidgety or restless that you have been moving around a lot more than usual: not at all 9. Thoughts that you would be better off or of hurting yourself in some way: not at all Total score: 1 Depression Screening Interpretation: Negative Depression Screening Done: Yes 68146 - PHQ-9 Billing: Yes Source: Developed by Drs. Dash Slater, Keyana Morley, Andry Oneill and colleagues, with an educational camden from [employer]. Thrive Questionnaire Date Thrive assessed: 01/04/24 I am a: Patient What is your living situation today?: I choose not to answer this question Within the past 12 months, did the food you bought not last and you didn't have the money to get more?: I choose not to answer this question Within the past 12 months, did you worry whether your food would run out before you got money to buy more?: I choose not to answer this question Do you have trouble paying for medicines?: I choose not to answer this question Do you have trouble getting transportation to medical appointments?: I choose not to answer this question Do you have trouble paying your heating and electricity bill?: I choose not to answer this question Do you have trouble taking care of your child, family member or friend?: I choose not to answer this question Do you have trouble with day-to-day activities such as bathing, preparing meals, shopping, managing finances, etc.?: I choose not to answer this question Are you currently unemployed and looking for a job?: I choose not to answer this question Are you interested in more education?: I choose not to answer this question Please select the resources that you would like help with: None Currently or been in a relationship where the following occur: No concerns reported THRIVE Score: 0 AUDIT C Alcohol Use Questionnaire (AUDIT-C) 1. How often do you have a drink containing alcohol?: Never 3. How often do you have six or more drinks on one occasion?: Never Total Score: 0 TONE-7 AMB Questionnaire TONE-7 Date TONE - 7 assessed: 01/04/24 Feeling nervous, anxious, or on edge: 0 = Not at all Not being able to stop or control worryin = Not at all Worrying too much about different things: 0 = Not at all Trouble relaxin = Not at all Being so restless that it is hard to sit still: 0 = Not at all Becoming easily annoyed or irritable: 0 = Not at all Feeling afraid as if something awful might happen: 0 = Not at all Total TONE-7 score (0-4 normal; 5-9 mild; 10-14 moderate; 15-21 severe): 0 Source: Developed by Drs. Dash Slater, Keyana Morley, Andry Oneill and colleagues, with an educational camden from [employer]. TONE-7 Assessment Billing TONE-7 Assessment Tool: TONE-7 Assessment 91236 Review of Systems Const Denies body aches, Denies chills, Denies excessive sweating, Denies fatigue, Denies fever(s) and Denies headache(s) Eyes Denies blurry vision ENT Denies dysphagia, Denies vertigo, Denies dizziness, Denies headache(s), Denies hearing loss and Denies tinnitus Card Denies chest pain, Denies chest pain with activity, Denies syncope, Denies irregular heart rhythm and Denies dyspnea Resp Denies chest congestion, Denies cough, Denies hemoptysis, Denies dyspnea and Denies wheezing GI Denies abdominal pain, Denies melena, Denies hematochezia, Denies coffee ground emesis, Denies dysphagia, Denies diarrhea, Denies nausea and Denies vomiting Denies difficulty urinating, Denies dysuria, Denies urinary frequency, Denies urinary hesitancy and Denies urinary urgency Musc Denies arthralgias, Denies limited range of motion, Denies muscle cramps and Denies muscle weakness Skin/Breast Denies rash and Denies skin ulcer Neuro Denies Abnormal speech present, Denies confusion, Denies vertigo, Denies dizziness, Denies syncope, Denies headache(s), Denies memory loss and Denies seizure-like activity Psych Denies anxiety, Denies confusion, Denies depression, Denies memory loss, Denies panic attacks and Denies paranoia Endo Denies excessive sweating, Denies fatigue, Denies flushing, Denies polydipsia and Denies polyuria Aller/Immun Denies wheezing Physical exam (Primary Care) Vital Signs: Last Vital Signs Pulse 84 01/04/24 13:41 BP 134/88 01/04/24 13:41 BMI result Body Mass Index 40.2 Tobacco/Smoking Status: Tobacco use Status Tobacco use date assessed 01/04/24 01/04/24 13:30 Patient Tobacco Use Status Never used Tobacco 01/04/24 13:30 Tobacco use type Cigarette 01/04/24 13:30 e-Cigarette/Vaping Use Never Used 01/04/24 13:30 PHQ-9: PHQ-9 Score PHQ-9: Total score 1 01/04/24 13:42 Depression Screening Interpretation: Negative Thrive Assessment: Date of Thrive Assessment Date Thrive assessed 01/04/24 01/04/24 13:30 Currently or been in a relationship where the following occur: No concerns reported Const General: cooperative, comfortable, no acute distress, alert and awake; No confusion Orientation/consciousness: oriented to person, oriented to place, patient oriented x3 and No confusion HENMT Head: Yes normocephalic Ears: external ears normal and TM's normal bilaterally Face and sinus: No sinus tenderness Mouth: Normal oral and palatal mucosa present and tongue normal Teeth and gingiva: dentition normal and gingiva normal Throat: Yes posterior oropharynx normal, Yes tonsils normal and Yes uvula midline Eyes Conjunctivae: conjunctivae normal Sclerae: sclerae normal Pupils: Equal, round and reactive pupils present EOM: EOMs intact bilaterally Direct Ophthalmoscopy: No no photophobia Neck Neck: Yes no lymphadenopathy, No tender and Yes no JVD Thyroid: Thyroid normal Carotids: no bruits Chest Chest palpation & inspection: no tenderness Resp Effort & Inspection: normal respiratory effort, no audible wheezes, not labored and no stridor Auscultation: no crackles, no rales, no rhonchi and no wheezes Cardio Jugular venous distension: no JVD Rate: regular rate, not bradycardic and not tachycardic Rhythm: regular rhythm Bruits: no carotid bruits Peripheral pulses: Peripheral pulses 2+ throughout GI Inspection: Yes normal to inspection, No abdominal wall ecchymosis and No visible herniation Palpation (GI): Soft to palpation, nontender, no guarding, not rigid and No hepatosplenomegaly present Auscultation: normoactive bowel sounds General: Yes no CVA tenderness Back/Spine/Pelvis Back: no CVA tenderness and No back tenderness Cervical Spine: cervical ROM normal Thoracic/Lumbar Spine: thoracic and lumbar spine normal to inspection, straight leg raise negative bilaterally, No thoraco-lumbar ROM limited and No lumbar spinal tenderness Skin Lesions: no lesions Rashes: no rashes Wounds: no wounds Neuro General: oriented to person, oriented to place, patient oriented x3, CN's II-XI intact bilaterally and No confusion Cranial nerves: Yes Equal, round and reactive pupils present and Yes Normal accommodation reflex present Cognition (Neuro): normal cognition Speech: No Abnormal speech present Gait exam (Neuro): Normal gait present Motor exam (neuro): 5/5 motor strength present throughout Extrem Right upper extremity: full ROM; no cyanosis Left upper extremity: full ROM; no cyanosis Right lower extremity: no edema Left lower extremity: no edema Psych Appearance: grossly normal Mental Status: mental status grossly normal Affect: normal affect Attitude: cooperative Thought process: Normal thought process present Office Procedures Flu Questionnaire Does the patient have a severe egg allergy?: No Immunizations Fluarix Triv [id number] (PF) 45 mcg (15 mcg x 3)/0.5 mL IM syringe Performing Provider: Onofre Parekh PA-C [facility] Documented (not given) by: XIOMARA Buitrago on 01/04/24 13:42 Reason Not Given: Patient Refused Coding Level of Care Code Est Pt Prev Care 18-39y(19080) Diagnoses Annual physical exam Z00.00 Tinea pedis of right foot B35.3 Laterality: right Seborrheic dermatitis L21.9 Mixed hyperlipidemia E78.2 Hyperlipidemia type: mixed hyperlipidemia Benign essential hypertension I10 Additional Codes TONE-7 Assessment Billing - TONE-7 Assessment Tool: TONE-7 Assessment [id number] ([id number]) PHQ-9 - 94114 - PHQ-9 Billing: Yes ([id number]) Assessment & Plan Assessment & Plan (1) Annual physical exam: Code(s): Z00.00 - Encounter for general adult medical examination without abnormal findings Category: Medical Plan: As per HPI (2) Tinea pedis: Code(s): B35.3 - Tinea pedis Category: Medical Qualifiers: Laterality: right Qualified Code(s): B35.3 - Tinea pedis Plan: As per HPI patient continues to have refractory Tempus skin infections over bilateral feet. He reports he itches to the point he starts to bleed. Seems to have failed topical antifungal treatment. Will trial terbinafine 12 week oral antifungal. Will try to set with Podiatry again for further recommendation. (3) Seborrheic dermatitis: Code(s): L21.9 - Seborrheic dermatitis, unspecified Category: Medical Plan: As per HPI (4) HLD (hyperlipidemia): Code(s): E78.5 - Hyperlipidemia, unspecified Category: Medical Qualifiers: Hyperlipidemia type: mixed hyperlipidemia Qualified Code(s): E78.2 - Mixed hyperlipidemia Plan: Patient's most recent lipid panel showing borderline high total cholesterol. Unfortunately has gained weight since last office visit. He will try to work on lifestyle and dietary modifications. Goal LDL to be below 160 (5) Benign essential hypertension: Code(s): I10 - Essential (primary) hypertension Category: Medical Plan: Patient's blood pressure today in office acceptable. He will continue his current dose of antihypertensive medication with goal blood pressure to be below 140/90 Orders: Orders Influenza [id number] Immunization Today Z23 - Encounter for immunization Comprehensive [place]. Panel Fast Today I10 - Essential (primary) hypertension Lipid Panel Today E78.2 - Mixed hyperlipidemia Complete Blood Count no Diff Today I10 - Essential (primary) hypertension Referrals Podiatry Referral L21.9 - Seborrheic dermatitis, unspecified Medications: New terbinafine HCl 250 mg PO DAILY 12 weeks 84 tabs 0RF B35.3 - Tinea pedis ketoconazole 2% 1 appl topical 3XW 6 weeks 120 mL 1RF L21.9 - Seborrheic dermatitis, unspecified Refilled losartan 25 mg PO DAILY 90 days 90 tabs 1RF I10 - Essential (primary) hypertension omeprazole 20 mg PO DAILY 90 caps 1RF K21.9 - Gastro-esophageal reflux disease without esophagitis
[2024-01-04 13:41] VITALS: BP 134/88; PULSE 84; BMI 40.2
== END 2024-01-04 14:05 | disposition home or self-care (01) ==
PROVIDERS: PCP Physician Assistant; Visit Provider Physician Assistant
DX: Z00.00 Encounter for general adult medical examination without abnormal findings (principal); B35.3 Tinea pedis; L21.9 Seborrheic dermatitis, unspecified; E78.2 Mixed hyperlipidemia; I10 Essential (primary) hypertension; Z23 Encounter for immunization

== ENCOUNTER → 2024-01-04 13:27 | Outpatient (BNVA) | payer OTHER, SELFPAY | PROVIDERS: PCP Physician Assistant; Visit Provider Physician Assistant | DX: Z00.00 Encounter for general adult medical examination without abnormal findings (principal); B35.3 Tinea pedis; L21.9 Seborrheic dermatitis, unspecified; E78.2 Mixed hyperlipidemia; I10 Essential (primary) hypertension | CPT/HCPCS: 90471; 96127; 99395 ==

== ENCOUNTER 2024-01-05 10:58 | Outpatient (REF) | payer OTHER, SELFPAY ==
[2024-01-05 12:16] LABS: Hematocrit 47.2 % (42.0-52.0); Hemoglobin 16.2 g/dl (14.0-18.0); Mean Corpuscular HGB Conc 34.3 g/dl (31.0-36.0); Mean Corpuscular Hemoglobin 29.6 pg (27.0-33.0); Mean Corpuscular Volume 86.3 fL (80.0-98.0); Mean Platelet Volume 11.2 fL (9.4-12.4); Platelet Count 289 X10*3/uL (160-400); Red Blood Count 5.47 X10*6/uL (4.60-5.80); Red Cell Distribution Width 12.8 % (11.0-16.0); White Blood Count 10.6 X10*3/uL (4.8-10.8)
[2024-01-05 12:44] LABS: Albumin Level 4.2 g/dL (3.5-5.0); Alkaline Phosphatase 90 U/L (39-117); Anion Gap 7 (12-20); Aspartate Amino Transferase 34 U/L (5-37); Bilirubin Total 0.4 mg/dL (0.0-1.0); Blood Urea Nitrogen 13 mg/dL (9-16); Calcium 8.9 mg/dL (8.4-10.2); Carbon Dioxide 29 mmol/L (22-29); Chloride 109 mmol/L (96-108); Cholesterol 195 mg/dL (<200); Estimated Glomerular Filt Rate > 60; Glucose Fasting 86 mg/dL (60-99); HDL Cholesterol 32 mg/dL (>40); LDL Cholesterol Calculated 136 mg/dL (<100); Potassium 4.6 mmol/L (3.3-5.1); Sodium 140 mmol/L (135-145); Total Protein 7.5 g/dL (6.5-8.0); Triglycerides 137 mg/dL (<150)
[2024-01-05 13:01] LABS: Alanine Aminotransferase 78 U/L (0-40)
== END 2024-01-05 10:59 | disposition home or self-care (01) ==
LOC: HO.LAB 10:58
PROVIDERS: PCP Physician Assistant; Visit Provider Physician Assistant
DX: I10 Essential (primary) hypertension (principal); E78.2 Mixed hyperlipidemia
CPT/HCPCS: 36415; 80053; 80061; 85027

== ENCOUNTER 2024-06-24 14:25 | Emergency (ER) | payer OTHER, SELFPAY ==
[2024-06-24 14:35] VITALS: BP 147/94; PULSE 91; RESP 18; TEMP 36.4; O2SAT 96; BMI 41.3
--- NOTE | 2024-06-24 14:35 | ED.EYEPROB ---
HPI - Eye Problem General Stated complaint: Woke Up With Redness In Left Eye Source: patient Mode of arrival: ambulatory Limitations: no limitations History of Present Illness ED Provider: nimco carter HPI Narrative: 33 yo male with PMHx of HTN, SHIRA, GERD, States he woke up this morning and noticed something in his eye, thinks it might be blood, associated with blurry vision this morning but this has resolved. Denies injury, or mechanical rubbing, allergies, pain. States he has been compliant with his antihypertensive regimen.. Related Data Previous Rx's ?Medication ?Instructions ?Recorded ketoconazole 2 % shampoo 1 appl topical 3XW 6 weeks #120 mL 01/04/24 losartan 25 mg tablet 25 mg PO DAILY 90 days #90 tabs 01/04/24 omeprazole 20 mg capsule,delayed 20 mg PO DAILY #90 caps 01/04/24 release terbinafine HCl 250 mg tablet 250 mg PO DAILY 12 weeks #84 tabs 01/04/24 Allergies Allergy/AdvReac Type Severity Reaction Status Date / Time No Known Allergies Allergy Verified 06/24/24 14:37 Review of Systems Review of Systems: Yes all other systems are reviewed and are negative [facility] Past Medical History Attestation statement: The following information was validated with the patient. Source: old records reviewed Medical History Tinea pedis COVID-19 Low back pain Morbid obesity with BMI of 50.0-59.9, adult GERD (gastroesophageal reflux disease) Benign essential hypertension Surgical History No pertinent past surgical history Family History Family History Father Diabetes Hypertension Hyperlipidemia Mother Hypertension Brother No problems noted. Sister In good health Son In good health Daughter In good health Social History Social History Housing: Apartment Alcohol intake: never Patient Tobacco Use Status: Never used Tobacco Tobacco use type: Cigarette e-Cigarette/Vaping Use: Never Used Second Hand Smoke Exposure: No Substance Use Type: Marijuana service: No Current occupational status: unemployed Current occupational exposures/hazards: No Cognitive needs: No Hearing needs: No Vision needs: No Physical Exam Vital Signs: Appearance: Alert.?Oriented to person, place and time. No acute distress.?Normal affect. Eyes: Pupils equal, round and reactive to light.? EOMI. No nystagmus. Conjunctival hemorrhage on the left 06:00-09:00 inferior aspect. Visual acuity: Left - 20/50, Right - 20/50. Both 20/50. No chemosis. No hyphema. ? CVS: Heart sounds normal. Normal heart rate and rhythm.? Pulses normal.?? Respiratory: No respiratory distress.? Lung sounds clear to auscultation bilaterally?? Skin: Skin warm and dry.? Normal skin color.? Neuro: Moves all extremities spontaneously. Sensation intact bilaterally. Ambulates with normal steady gait. Medical Decision Making Medical Decision Making MDM Narrative: patient is a 33-year-old male with past medical history of HTN, SHIRA, GERD who presents emergency department for evaluation of atraumatic redness in the eye as per HPI, on examination has findings consistent with subconjunctival hemorrhage. He is noted to have elevated blood pressure reading in the emergency department 147/94, though he does endorse compliance with his antihypertensive regimen. This may certainly be the etiology for his symptoms today. We did discuss alternative causes such as coughing, sneezing etc. No evidence of foreign body on examination. No associated unilateral headache, fixed pupil, associated vomiting, or endorsed pressure to suggest acute angle glaucoma. No periorbital edema erythema or warmth to suggest periorbital cellulitis, no painful EOMI to suggest orbital cellulitis. Not described as a severe constant boring pain worse at night in the morning, nonradiating, to suggest scleritis. On examination does not have corneal opacity or infiltrate with foreign body sensation, mucopurulent discharge or hypopyon in the setting of a presumed recent conjunctivitis to suggest keratitis. Atraumatic in nature, not consistent with penetrating injury or globe rupture additionally no hyphema. stable for discharge home, outpatient follow-up with primary care provider Differential Diagnosis Differential Diagnoses: The differential diagnosis associated with the presentation includes (See narrative above) Independent Historian Clinical information obtained from an independent historian. History obtained from or confirmed by: Spouse External Record Review External record reviewed: Outpatient record Chronic Conditions Patient?s care impacted by: Other ( see narrative above) Discharge Plan Discharge Clinical Impression: Hypertension Subconjunctival hemorrhage Qualifiers: Laterality: left Qualified Code(s): H11.32 - Conjunctival hemorrhage, left eye Patient Disposition: Home, Self-Care Additional Instructions: This will resolve on its own with time. Avoid rubbing the eye as this may worsen the current presentation. as discussed, monitor your blood pressure readings over the next 2 weeks. I suggest checking this 3 times weekly in the morning 1-2 hours after taking your blood pressure medication when you are not under stress, legs uncrossed, With an appropriate fitting cuff. Please write down these blood pressure readings and review this with your primary care doctor. If they are persistently elevated they may consider making changes to your blood pressure medication. Return to emergency department any new or worsening symptoms or concerns. Prescriptions: No Action losartan 25 mg tablet 25 mg PO DAILY 90 Days Qty: 90 1RF omeprazole 20 mg capsule,delayed release(DR/EC) 20 mg PO DAILY Qty: 90 1RF ketoconazole 2 % shampoo 1 appl topical 3XW 42 Days Qty: 120 1RF terbinafine HCl 250 mg tablet 250 mg PO DAILY 84 Days Qty: 84 0RF Referrals: Onofre Parekh PA-C [Primary Care Provider] - Print Language: Japanese
--- OUTSIDE RECORDS SUMMARY | 2024-06-24 14:46 | XMS_ITS | Clinical Summary ---
Author Organization [address] [facility] Address [address] [place] [address] Phone Care Team Providers Care Freight Sorter Name Role Phone Onofre Parekh Primary Care Provider Social History Tobacco Use Types Packs/Day Years Used Date Smoking Tobacco: Never Assessed Sex and Gender Information Value Date Recorded Sex Assigned at Not on file Legal Sex Male 9:32 AM EST Gender Identity Not on file Sexual Orientation Not on file Plan of Treatment Health Maintenance Due Date Last Done Comments Hepatitis B Vaccines (1 of 3 - 19+ 3-dose series) 08/01/2010 COVID-19 Vaccine ( - 2023-2 5 season) 2023 Depression Screening 01/07/2024 HIV Screening 01/07/2024 Hepatitis C Screening 01/07/2024 Social Influencers of Health Screening 01/07/2024 Influenza Vaccine (Season Ended) 2024 DTaP,Tdap,and Td Vaccines (2 - Td or Tdap) 08/24/2028 08/24/2018 HIB Vaccines Aged Out No longer eligi ble based on patient's age to complete this topic HPV Vaccines Aged Out No longer eligi ble based on patient's age to complete this topic Hepatitis A Vaccines Aged Out No long er eligible based on patient's age to complete this topic IPV Vaccines Aged Out No longer eligi ble based on patient's age to complete this topic MMR Vaccines Aged Out No longer eligi ble based on patient's age to complete this topic Meningococcal ACWY Vaccine Aged Out N o longer eligible based on patient's age to complete this topic Meningococcal B Vaccine Aged Out No l onger eligible based on patient's age to complete this topic Pneumococcal Vaccine: Pediat rics (0 to 5 Years) and At-Risk Patients (6 to 64 Years) Aged Out No longer eligi ble based on patient's age to complete this topic RSV Immunization Patients Un jarvis 20 months Aged Out No longer eligible b ased on patient's age to complete this topic Varicella Vaccines Aged Out No longer eligible based on patient's age to complete this topic Insurance Care Teams Freight Sorter Relationship Specialty Start Date End Date Onofre Parekh PA PCP - General Physician [employer] Consultant 01/07/24
[2024-06-24 15:27] VITALS: BP 147/94; PULSE 91; RESP 18; TEMP 36.4; O2SAT 96
== END 2024-06-24 15:27 | disposition home or self-care (01) ==
PROVIDERS: Emergency Provider Emergency Medicine Emergency Medical Services; PCP Physician Assistant
DX: I10 Essential (primary) hypertension (principal); H11.32 Conjunctival hemorrhage, left eye; E78.5 Hyperlipidemia, unspecified; Z79.899 Other long term (current) drug therapy
CPT/HCPCS: 99282

== ENCOUNTER 2024-10-16 07:23 | Emergency (ER) | payer OTHER, SELFPAY ==
[2024-10-16 07:25] VITALS: BP 151/88; PULSE 77; RESP 18; TEMP 36.3; O2SAT 98; BMI 40.4
--- NOTE | 2024-10-16 07:39 | PC.NURSE ---
L upper eyelid swollen; no drainage noted at this time; pt reports eye irritated and upper eyelid sore to touch; denies visual changes, injuries or known allergens
--- OUTSIDE RECORDS SUMMARY | 2024-10-16 07:45 | XMS_ITS | Clinical Summary ---
Author Organization [address] [facility] Address [address] [place] [address] Phone Care Team Providers Care Soda Room Operator Name Role Phone Onofre Parekh Primary Care [...] - 19+ 3-dose series) 08/01/2010 COVID-19 Vaccine (1 - 2023-2 5 season) 2023 HIV Screening 01/07/2024 Hepatitis C Screening 01/07/2024 Social Influencers of Health Screening 01/07/2024 Depression Screening 02/17/2024 Influenza Vaccine (#1) 2024 DTaP,Tdap,and Td Vaccines (2 - Td [...] 5 Years) and At-Risk Patients (6 to 49 Years) Aged Out No longer eligi ble based on patient's age to complete this topic RSV Immunization Patients Un jarvis 20 months Aged Out No longer eligible b ased on patient's age to complete this topic Varicella Vaccines Aged Out No longer eligible based on patient's age to [place] [address] Care Teams Soda Room Operator Relationship Specialty Start Date End Date Onofre Parekh PA PCP - General Physician Corrugator Operator Helper 01/07/24
--- NOTE | 2024-10-16 08:01 | ED_ITS ---
HPI - General Adult General Chief complaint: Eye Problems Stated complaint: L Eye Pain Swelling Time Seen by Provider: 10/16/24 08:00 Source: patient Mode of arrival: ambulatory Limitations: no limitations History of Present Illness ED Provider: Yvonne Rousseau PA-C HPI narrative: Patient is a 34 year-old assigned male at with HTN, obesity, HLD, GERD presenting to the emergency department with concerns of left eye swelling and pain. The patient reports he awoke this morning to a completely swollen closed eye with crusty discharge that he was able to wipe off with water. The left eye swelling started this morning, but he reports left eye pain starting on Thursday. He denies any vision changes, double vision, blurry vision, headaches, dizziness, chest pain, SOB, nausea, vomiting, abdominal pain. He reports no sick contacts and no recent illness. Onset (ago): day(s) (3) Related Data Previous Rx's ?Medication ?Instructions ?Recorded ketoconazole 2 % shampoo 1 appl topical 3XW 6 weeks # 120 mL 01/04/24 omeprazole 20 mg capsule,delayed 20 mg PO DAILY #90 ca ps 01/04/24 release terbinafine HCl 250 mg tablet 250 mg PO DAILY 12 weeks #84 tabs 01/04/24 losartan 25 mg tablet 25 mg PO DAILY 90 days #90 t abs 09/21/24 erythromycin 5 mg/gram (0.5 %) eye 0.5 inch ophthalmic (eye) Q4H #3.5 10/16/24 ointment grams Allergies Allergy/AdvReac Type Severity Reaction Status Date / Time No Known Allergies Allergy Verified 10/16/24 07:27 Review of Systems Constitutional: Constitutional: Denies chills, Denies fever(s) and Denies headache(s) Eyes: Eyes: Reports as per HPI, Denies blurry vision, Denies change in vision, Denies diplopia and Denies photophobia Comments: left eye pain, swelling, discharge ENT: Reports as per HPI, Denies dizziness and Denies headache(s) Cardiovascular: Cardiovascular: Reports as per HPI, Denies chest pain, Denies lightheadedness and Denies dyspnea Respiratory: Respiratory: Reports as per HPI, Denies cough and Denies dyspnea Gastrointestinal: Gastrointestinal: Reports as per HPI, Denies abdominal pain, Denies nausea and Denies vomiting Genitourinary: Genitourinary: Reports as per HPI Musculoskeletal: Musculoskeletal: Reports as per HPI Neurologic: Reports as per HPI, Denies dizziness and Denies headache(s) Psychiatric: Psychiatric: Reports as per HPI Endocrine: Endocrine: Reports as per HPI Hematologic/Lymphatic: Hematologic/Lymphatic: Reports as per HPI Allergic/Immunologic: Allergic/Immunologic: Reports as per HPI [facility] Past Medical History Attestation statement: The following information was validated with the patient. (patient's girlfriend validated all information) Source: old records reviewed, nursing notes reviewed and other (patient's girlfriend provided additional history and confirmed the history provided by the patient. ) Medical History Tinea pedis COVID-19 Low back pain Morbid obesity with BMI of 50.0-59.9, adult GERD (gastroesophageal reflux disease) Benign essential hypertension Surgical History No pertinent past surgical history Family History Family History Father Diabetes Hypertension Hyperlipidemia Mother Hypertension Brother No problems noted. Sister In good health Son In good health Daughter In good health Social History Social History Housing: Apartment Alcohol intake: never Patient Tobacco Use Status: Never used Tobacco Tobacco use type: Cigarette e-Cigarette/Vaping Use: Never Used Second Hand Smoke Exposure: No Substance Use Type: Marijuana Advance Directives: No Advance Directives Information Provided: No service: No Current occupational status: unemployed Current occupational exposures/hazards: No Cognitive needs: No Hearing needs: No Vision needs: No Physical Exam ED Vital Signs: Vital Signs - 24 hr 10/16/24 07:25 10/16/24 08:45 Temperature 97.3 F 97.3 F Pulse Rate 77 77 Respiratory Rate 18 18 Blood Pressure 151/88 H 152/82 H Pulse Oximetry 98 98 Oxygen Delivery Method Room Air Room Air BMI result Body Mass Index 40.4 Const General: cooperative, no acute distress, alert and awake Nutritional Appearance: well nourished Orientation/consciousness: patient oriented x3 HENMT Head: Yes normal to inspection and Yes atraumatic Ears: hearing grossly normal bilaterally and external ears normal General nose exam: Normal external nose present, no nasal discharge noted and no epistaxis Face and sinus: Yes normal facial exam, No abrasion and No laceration Mouth: Normal oral and palatal mucosa present, no drooling and no muffled voice Eyes Other: left upper eyelid swollen Pupils: Equal, round and reactive pupils present EOM: EOMs intact bilaterally Direct Ophthalmoscopy: No photophobia Neck Neck: Yes normal visual inspection and Yes full ROM Resp Effort & Inspection: normal respiratory effort and able to speak in complete sentences Neuro General: patient oriented x3, moves all extremities and CN's II-XI intact bilaterally Cranial nerves: Yes Equal, round and reactive pupils present Cognition (Neuro): normal cognition Extrem General: Yes normal to inspection, Yes full ROM and Yes capillary refill normal Psych Appearance: grossly normal Mental Status: mental status grossly normal Affect: normal affect Attitude: cooperative Thought process: Normal thought process present Thought content: Normal thought content present Insight: Good insight present (Psych) Medical Decision Making Medical Decision Making MDM Narrative: Patient is a 34 year-old assigned male at with HTN, obesity, HLD, GERD presenting to the emergency department with concerns of left eye swelling and pain.. Patient's physical exam was as noted in the physical exam portion of this note. Patient's left upper eye lid was somewhat swollen with minimal discharge present - consistent with a conjunctivitis. I explained my physical exam findings to the patient and the patient's girlfriend. I answered all questions asked by the patient and the patient's girlfriend. I stressed the importance of the patient taking his medication as directed (either prescribed or as the over the counter packaging recommends). I stressed the importance of the patient following up with his primary care provider. I stressed the importance of the patient returning to the emergency department immediately if his symptoms were to worsen or if he were to develop any dizziness, shortness of breath, difficulty breathing, chest pain, blurry vision, loss of vision, nausea, vomiting, abdominal pain, fever, chills, back pain, or any other complaints. Patient and the patient's girlfriend verbalized agreement and understanding with this treatment plan and discharge. Differential Diagnosis Differential Diagnoses: The differential diagnosis associated with the presentation includes Conjunctivitis Stye Admission/Observation Consideration of admission/observation: Escalation of care including admi ssion/observation considered Patient would have been admitted to the hospital had his clinical presentation warranted hospital admission. Independent Historian Clinical information obtained from an independent historian. History obtained from or confirmed by: Other (patient's girlfriend provided additional history and confirmed the history provided by the patient. ) Prescription Management I considered prescription management with: Antibiotic (patient prescribed an antibiotic for probable left conjunctivitis) Discharge Plan Discharge Clinical Impression: Conjunctivitis Patient Disposition: Home, Self-Care Instructions: Conjunctivitis (ED) Additional Instructions: Your exam is concerning for conjunctivitis (pink eye). Use your antibiotic ointment as prescribed. Apply warm compresses to the area. IF you are prescribed home medications and/or you are taking over the counter medications at home - it is very important you continue to do so as prescribed / directed unless told otherwise. Follow up with your primary care provider. Return to the emergency department immediately if your symptoms worsen or if you develop any numbness, tingling, dizziness, shortness of breath, difficulty breathing, chest pain, blurry vision, loss of vision, nausea, vomiting, abdominal pain, fever, chills, back pain, or any other complaints. Please see the information below about our Patient Portal. If you are not yet enrolled in the [facility] Patient Portal, you will receive an enrollment email invitation following your visit to any [facility] care setting. You may also self-enroll in the Patient Portal by visiting our website: [email or web address] The following information is required to access the Patient Portal: - Your [facility] Medical Record Number - Your personal home email address (must match what is in your electronic medical record, Registration staff can assist with this) - Name - Date of Capabilities of the Patient Portal: - Message some providers - View upcoming appointments - Access your health summary, medical history, and visit history - View current conditions and allergies - View procedure and lab results - View your medications, including guidelines, side effects, and precautions - Complete pre-appointment questionnaires requested by your provider - Ready summary reports of your office visits and procedures To access the Patient Portal Mobile [employer]ora, follow these directions: - Search [employer] in the Lora Store or Google Play Store - Download the Lora - Search for [facility] - Enter your login/password Prescriptions: New erythromycin 5 mg/gram (0.5 %) ointment 0.5 inch ophthalmic (eye) Q4H Qty: 3.5 0RF No Action losartan 25 mg tablet 25 mg PO DAILY 90 Days Qty: 90 1RF omeprazole 20 mg capsule,delayed release(DR/EC) 20 mg PO DAILY Qty: 90 1RF ketoconazole 2 % shampoo 1 appl topical 3XW 42 Days Qty: 120 1RF terbinafine HCl 250 mg tablet 250 mg PO DAILY 84 Days Qty: 84 0RF Referrals: Onofre Parekh PA-C [Primary Care Provider, Internal Medicine] Interventions: ED Discharge Assessment Last Done: 10/16/24 08:45 Discharge Date/Time: 10/16/24 08:45 Print Language: Pashto
[2024-10-16 08:45] VITALS: BP 152/82; PULSE 77; RESP 18; TEMP 36.3; O2SAT 98
== END 2024-10-16 08:45 | disposition home or self-care (01) ==
PROVIDERS: Emergency Provider Emergency Medicine; PCP Physician Assistant
DX: H10.9 Unspecified conjunctivitis (principal); I10 Essential (primary) hypertension; Z79.899 Other long term (current) drug therapy
CPT/HCPCS: 99283

== ENCOUNTER 2024-10-25 12:48 | Emergency (ER) | payer OTHER, SELFPAY ==
[2024-10-25 12:58] VITALS: BP 189/103; PULSE 55; RESP 18; TEMP 36.8; O2SAT 100; BMI 40.0
--- NOTE | 2024-10-25 12:58 | ED_ITS ---
HPI - Eye Problem General Chief complaint: Eye Problems Stated complaint: eye issue Time Seen by Provider: 10/25/24 13:12 Source: patient and RN notes reviewed Mode of arrival: ambulatory Limitations: no limitations History of Present Illness ED Provider: Hanh Ellsworth PA-C HPI Narrative: This is a 34-year-old male, with no known medical problems, who presents to the emergency department with concerns of right lower eyelid swelling for the last several days. Patient states that he was seen here about a week and a half ago and was diagnosed with conjunctivitis and was treated with erythromycin ointment. He started using this in his other eye and has noticed no improvement. He denies any fevers or chills. No changes to his vision, no double vision, no pain with eye movements. No fevers. He does not wear contact lenses. No injury to his eye. Denies history of similar symptoms in the past. No other complaints or concerns at this time. Onset (ago): day(s) Onset description: gradual Duration: constant Location: right eye Associated symptoms: none Treatments Prior to Arrival: other (Erythromycin ointment) Related Data Previous Rx's ?Medication ?Instructions ?Recorded ketoconazole 2 % shampoo 1 appl topical 3XW 6 weeks # 120 mL 01/04/24 omeprazole 20 mg capsule,delayed 20 mg PO DAILY #90 ca ps 01/04/24 release terbinafine HCl 250 mg tablet 250 mg PO DAILY 12 weeks #84 tabs 01/04/24 losartan 25 mg tablet 25 mg PO DAILY 90 days #90 t abs 09/21/24 erythromycin 5 mg/gram (0.5 %) eye 0.5 inch ophthalmic (eye) Q4H #3.5 10/16/24 ointment grams amoxicillin 875 mg-potassium 1 tab PO BID 7 days #14 t abs 10/25/24 clavulanate 125 mg tablet erythromycin 5 mg/gram (0.5 %) eye 0.5 inch ophthalmic (eye) QID #3.5 10/25/24 ointment grams ibuprofen 600 mg tablet 600 mg PO Q6H PRN pain #30 t abs 10/25/24 Allergies Allergy/AdvReac Type Severity Reaction Status Date / Time No Known Allergies Allergy Verified 10/25/24 12:59 Review of Systems Review of Systems: Constitutional : No Fever, No Chills ENT/Mouth : No sore throat, No Rhinorrhea Eyes: No Eye Pain, No Redness, +lower eyelid swelling Cardiovascular : No Chest Pain, No SOB Respiratory : No Cough, No Sputum Gastrointestinal : No Nausea, No Vomiting, No Diarrhea, No abdominal Pain Genitourinary : No Dysuria, No Hematuria Musculoskeletal : No joint pain, No Myalgias, No Joint Swelling Skin : No Skin Lesions Neuro : No Weakness, No Numbness, No Headache All other systems reviewed and are negative Yes all other systems are reviewed and are negative Constitutional: Constitutional: Reports as per [facility] Past Medical History Medical History Tinea pedis COVID-19 Low back pain Morbid obesity with BMI of 50.0-59.9, adult GERD (gastroesophageal reflux disease) Benign essential hypertension Surgical History No pertinent past surgical history Family History Family History Father Diabetes Hypertension Hyperlipidemia Mother Hypertension Brother No problems noted. Sister In good health Son In good health Daughter In good health Social History Social History Housing: Apartment Alcohol intake: never Patient Tobacco Use Status: Never used Tobacco Tobacco use type: Cigarette e-Cigarette/Vaping Use: Never Used Second Hand Smoke Exposure: No Substance Use Type: Marijuana Advance Directives: No Advance Directives Information Provided: Yes service: No Current occupational status: unemployed Current occupational exposures/hazards: No Cognitive needs: No Hearing needs: No Vision needs: No Physical Exam Exam: Exam: General: Awake, alert, and oriented X3. No acute distress. HEENT: Right eye conjunctiva is noninjected, at the lower lid just lateral to the medial canthus, there is a 2 mm punctate lesion, tender to palpation, erythematous, no drainage. PERRLA, EOMI. No periorbital edema. No pain with eye movements. CVS: Normal heart rate and rhythm. Pulses normal. Respiratory: No respiratory distress Skin: Warm, dry, no rashes noted to exposed skin. Normal skin color. Normal skin turgor. Extremities: Normal to inspection Neuro: Oriented X 3. No motor deficit. No sensory deficit. Vital Signs: Vital Signs: Last Vital Signs Temp 98.2 F 10/25/24 13:15 Pulse 55 10/25/24 13:15 Resp 18 10/25/24 13:15 BP 189/103 H 10/25/24 13:15 Pulse Ox 100 10/25/24 13:15 O2 Del Method Room Air 10/25/24 13:15 BMI result Body Mass Index 40.0 Medical Decision Making Medical Decision Making MDM Narrative: This is a 34-year-old male who presents emergency department with concerns of right lower eyelid pain and swelling. On arrival, vital signs revealed that he is hypertensive at 189/103, he denies any chest pain or shortness for breath. He does have a history of hypertension and has been taking his medications as prescribed. He states that his blood pressure cuff at home has stopped working. He denies any vision changes, headache, chest pain, shortness of breath. I encouraged patient to get a blood pressure cuff to monitor this. I also informed patient that he needs to apply warm compresses to his right lower lid as his exam is consistent with a stye. No evidence of periorbital cellulitis or orbital cellulitis. We will also treat with Augmentin as he has been on erythromycin which he was given several days ago for conjunctivitis here in the emergency room for his left eye however he states that he has not had any improvement. Given strict return precautions. He understands and agrees with plan. Patient stable for discharge Differential Diagnosis Differential Diagnoses: The differential diagnosis associated with the presentation includes Stye, orbital cellulitis, periorbital cellulitis, conjunctivitis Discharge Plan Discharge Clinical Impression: Hordeolum externum of right lower eyelid, Elevated blood pressure reading Patient Disposition: Home, Self-Care Instructions: [place] (ED) Additional Instructions: You were seen in the emergency department due to right lower eyelid swelling. You have a stye. This is an infection that requires antibiotic treatment for. Continue using the erythromycin ointment as prescribed. Also take Augmentin as prescribed, finish the entire course even if your symptoms improve. Warm compresses 5-6 times per day. This area will likely rupture, however this may take several days for it to resolve. You can alternate between ibuprofen and or Tylenol as needed for pain. Your blood pressure was found to be elevated, I am recommending you check your blood pressure daily, please obtain a blood pressure cuff for monitoring. Prescriptions: New erythromycin 5 mg/gram (0.5 %) ointment 0.5 inch ophthalmic (eye) QID Qty: 3.5 0RF ibuprofen 600 mg tablet 600 mg PO Q6H PRN (Reason: pain) Qty: 30 0RF amoxicillin-pot clavulanate 875-125 mg tablet 1 tab PO BID 7 Days Qty: 14 0RF No Action losartan 25 mg tablet 25 mg PO DAILY 90 Days Qty: 90 1RF erythromycin 5 mg/gram (0.5 %) ointment 0.5 inch ophthalmic (eye) Q4H Qty: 3.5 0RF omeprazole 20 mg capsule,delayed release(DR/EC) 20 mg PO DAILY Qty: 90 1RF ketoconazole 2 % shampoo 1 appl topical 3XW 42 Days Qty: 120 1RF terbinafine HCl 250 mg tablet 250 mg PO DAILY 84 Days Qty: 84 0RF Interventions: ED Discharge Assessment Last Done: 10/25/24 13:15 Discharge Date/Time: 10/25/24 13:16 Print Language: Tristanian
[2024-10-25 13:15] VITALS: BP 189/103; PULSE 55; RESP 18; TEMP 36.8; O2SAT 100
--- OUTSIDE RECORDS SUMMARY | 2024-10-25 15:31 | XMS_ITS | Clinical Summary ---
Author Organization [address] [facility] Address [address] [place] [address] Phone Care Team Providers Care Application Support Intern Name Role Phone Onofre Parekh Primary Care [...] to complete this topic Insurance Care Teams Application Support Intern Relationship Specialty Start Date End Date Onofre Parekh PA PCP - General Physician Drilling Machine Operator 01/07/24
== END 2024-10-25 13:16 | disposition home or self-care (01) ==
PROVIDERS: Emergency Provider Emergency Medicine; PCP Internal Medicine
DX: H00.012 Hordeolum externum right lower eyelid (principal); R03.0 Elevated blood-pressure reading, without diagnosis of hypertension
CPT/HCPCS: 99282; 99283

== ENCOUNTER 2025-01-09 11:10 | Outpatient (AMB) | payer OTHER, SELFPAY ==
--- NOTE | 2025-01-09 11:57 | A.OFFPC_ITS ---
Vital Signs 01/09/25 11:58 Height 5 ft 9 in Weight 272 lb 2 oz BMI 40.2 BP 120/62 Blood Pressure Location Lt brachial Position Sitting Pulse 68 Pulse Source Pulse Oximeter Temp 97.3 F Temp Source Temporal Artery Scan Pulse Oximetry (%) 96 Oxygen Delivery Method Room Air Intake Visit Reasons: PE Intake Note: Patient is here today for a physical. Investigative Agent Required: No Auto Clutch Specialist: Present Accompanied by: Spouse Allergies No Known Allergies Allergy (Verified 01/09/25 12:08) Medication List - Last Reconciled 01/09/25 by Onofre Parekh PA-C erythromycin 0.5 inches ophthalmic (eye) QID ibuprofen 600 mg PO Q6H PRN ketoconazole 2% 1 appl topical 3XW 6 weeks losartan 25 mg PO DAILY 90 days omeprazole 20 mg PO DAILY Tobacco use date assessed: 01/09/25 Dental Screening Dental Screen Date: 01/09/25 Did you have a dental visit in the last 12 months?: Yes Did you have a dental problem in the last 6 months where you did not have access to dental care?: No Was dental information given to patient?: Patient has dentist HPI PE HPI Details Patient is a 34-year-old male here today for a PE.? Patient has a past medical history significant for hypertension, obesity, GERD, enzymes due to fatty liver disease. . Concern--> chronic low back pain--> The patient reports significant lower back pain that is not relieved by Motrin, Tylenol, [id number] muscle relaxers, or topical hot and cold patches. There was no recent injury, and the pain is localized to the lower back without radiation into the legs. An X-ray of the back from 2020 was unremarkable. Hypertension:? Blood pressure acceptable today in office continues on losartan with good effect. .. GERD: Uses PPI therapy with good effect on his GERD symptoms. .. Borderline high cholesterol: Most recent lipid panel showing borderline high total cholesterol. Continues to work on lifestyle modifications to reduce his weight and high cholesterol foods. .. class 3 Obesity: Patient's BMI remains above 40. Has not gained any weight since last office visit. The patient is attempting to lose weight through a strict diet and exercise but has not been successful. The exercise regimen includes walking, jumping jacks, pushups, situps, and pullups performed twice a day, three days a week. Dietary habits include often skipping breakfast and sometimes eating only one meal at dinner, with intake of fruits and vegetables. .. Vaccine : decline COVID vaccine and flu vaccine. Up-to-date with tetanus vaccine [facility] Medical History (Updated 01/09/25 @ 13:11 by Onofre Parekh PA-C) Tinea pedis COVID-19 Low back pain GERD (gastroesophageal reflux disease) Benign essential hypertension Surgical History No pertinent past surgical history Family History Father Diabetes Hypertension Hyperlipidemia Mother Hypertension Brother No problems noted. Sister In good health Son In good health Daughter In good health Social History Housing: Apartment Alcohol intake: never Patient Tobacco Use Status: Never used Tobacco Tobacco use type: Cigarette e-Cigarette/Vaping Use: Never Used Second Hand Smoke Exposure: No Substance Use Type: Marijuana service: No Current occupational status: unemployed Current occupational exposures/hazards: No Cognitive needs: No Hearing needs: No Vision needs: No Questionnaire PHQ-9 Over the last 2 weeks, how often have you been bothered by any of the following problems? 1. Little interest or pleasure in doing things: several days 2. Feeling down, depressed, or hopeless: not at all 3. Trouble falling or staying asleep, or sleeping too much: several days 4. Feeling tired or having little energy: several days 5. Poor appetite or overeating: several days 6. Feeling bad about yourself - or that you are a failure or have let yourself or your family down: not at all 7. Trouble concentrating on things, such as reading the newspaper or watching television: not at all 8. Moving or speaking so slowly that other people could have noticed. Or the opposite - being so fidgety or restless that you have been moving around a lot more than usual: not at all 9. Thoughts that you would be better off or of hurting yourself in some way: not at all Total score: 4 Depression Screening Interpretation: Positive Depression Screening Follow-up: Existing condition Depression Screening Done: Yes 74163 - PHQ-9 Billing: Patient declined-do not bill Source: Developed by Drs. Dash Slater, Keyana Morley, Andry Oneill and colleagues, with an educational camden from [employer]. Thrive Questionnaire Date Thrive assessed: 01/04/25 I am a: Patient What is your living situation today?: I choose not to answer this question Within the past 12 months, did the food you bought not last and you didn't have the money to get more?: I choose not to answer this question Within the past 12 months, did you worry whether your food would run out before you got money to buy more?: I choose not to answer this question Do you have trouble paying for medicines?: No Do you have trouble getting transportation to medical appointments?: No Do you have trouble paying your heating and electricity bill?: No Do you have trouble taking care of your child, family member or friend?: No Do you have trouble with day-to-day activities such as bathing, preparing meals, shopping, managing finances, etc.?: Yes Are you currently unemployed and looking for a job?: I choose not to answer this question Are you interested in more education?: No Please select the resources that you would like help with: None Currently or been in a relationship where the following occur: No concerns reported THRIVE Score: 0 AUDIT C Alcohol Use Questionnaire (AUDIT-C) 1. How often do you have a drink containing alcohol?: Never Total Score: 0 TONE-7 AMB Questionnaire TONE-7 Date TONE - 7 assessed: 01/09/25 Feeling nervous, anxious, or on edge: 1 = Several days Not being able to stop or control worryin = Several days Worrying too much about different things: 1 = Several days Trouble relaxin = Several days Being so restless that it is hard to sit still: 1 = Several days Becoming easily annoyed or irritable: 1 = Several days Feeling afraid as if something awful might happen: 0 = Not at all Total TONE-7 score (0-4 normal; 5-9 mild; 10-14 moderate; 15-21 severe): 6 Source: Developed by Drs. Dash Slater, Andry Nava and colleagues, with an educational camden from [employer]. TONE-7 Assessment Billing TONE-7 Assessment Tool: TONE-7 Assessment 98686 Review of Systems Const Denies body aches, Denies chills, Denies excessive sweating, Denies fatigue, Denies fever(s) and Denies headache(s) Eyes Denies blurry vision ENT Denies dysphagia, Denies vertigo, Denies dizziness, Denies headache(s), Denies hearing loss and Denies tinnitus Card Denies chest pain, Denies chest pain with activity, Denies syncope, Denies irregular heart rhythm and Denies dyspnea Resp Denies chest congestion, Denies cough, Denies hemoptysis, Denies dyspnea and Denies wheezing GI Denies abdominal pain, Denies melena, Denies hematochezia, Denies coffee ground emesis, Denies dysphagia, Denies diarrhea, Denies nausea and Denies vomiting Denies difficulty urinating, Denies dysuria, Denies urinary frequency, Denies urinary hesitancy and Denies urinary urgency Musc Denies arthralgias, Denies limited range of motion, Denies muscle cramps and Denies muscle weakness Skin/Breast Denies rash and Denies skin ulcer Neuro Denies Abnormal speech present, Denies confusion, Denies vertigo, Denies dizziness, Denies syncope, Denies headache(s), Denies memory loss and Denies seizure-like activity Psych Denies anxiety, Denies confusion, Denies depression, Denies memory loss, Denies panic attacks and Denies paranoia Endo Denies excessive sweating, Denies fatigue, Denies flushing, Denies polydipsia and Denies polyuria Aller/Immun Denies wheezing Physical exam (Primary Care) Vital Signs: Last Vital Signs Temp 97.3 F 01/09/25 11:58 Pulse 68 01/09/25 11:58 BP 120/62 01/09/25 11:58 Pulse Ox 96 01/09/25 11:58 Oxygen Delivery Method Room Air 01/09/25 11:58 BMI result Body Mass Index 40.2 BMI Assessment/Plan discussion: High BMI High, discussed plan: lifestyle, weight reduction, dietary and physical activity Tobacco/Smoking Status: Tobacco use Status Tobacco use date assessed 01/09/25 01/09/25 12:03 Patient Tobacco Use Status Never used Tobacco 01/09/25 12:03 Tobacco use type Cigarette 01/09/25 12:03 e-Cigarette/Vaping Use Never Used 01/09/25 12:03 PHQ-9: PHQ-9 Score PHQ-9: Total score 4 01/09/25 12:11 Depression Screening Interpretation: Positive Depression Screening Follow-up: Existing condition Thrive Assessment: Date of Thrive Assessment Date Thrive assessed 01/04/25 01/09/25 12:03 Currently or been in a relationship where the following occur: No concerns reported Const General: cooperative, comfortable, no acute distress, alert and awake; No confusion Orientation/consciousness: oriented to person, oriented to place, patient oriented x3 and No confusion HENMT Head: Yes normocephalic Ears: external ears normal and TM's normal bilaterally Face and sinus: No sinus tenderness Mouth: Normal oral and palatal mucosa present and tongue normal Teeth and gingiva: dentition normal and gingiva normal Throat: Yes posterior oropharynx normal, Yes tonsils normal and Yes uvula midline Eyes Conjunctivae: conjunctivae normal Sclerae: sclerae normal Pupils: Equal, round and reactive pupils present EOM: EOMs intact bilaterally Direct Ophthalmoscopy: No no photophobia Neck Neck: Yes no lymphadenopathy, No tender and Yes no JVD Thyroid: Thyroid normal Carotids: no bruits Chest Chest palpation & inspection: no tenderness Resp Effort & Inspection: normal respiratory effort, no audible wheezes, not labored and no stridor Auscultation: no crackles, no rales, no rhonchi and no wheezes Cardio Jugular venous distension: no JVD Rate: regular rate, not bradycardic and not tachycardic Rhythm: regular rhythm Bruits: no carotid bruits Peripheral pulses: Peripheral pulses 2+ throughout GI Inspection: Yes normal to inspection, No abdominal wall ecchymosis and No visible herniation Palpation (GI): Soft to palpation, nontender, no guarding, not rigid and No hepatosplenomegaly present Auscultation: normoactive bowel sounds General: Yes no CVA tenderness Back/Spine/Pelvis Back: no CVA tenderness and No back tenderness Cervical Spine: cervical ROM normal Thoracic/Lumbar Spine: thoracic and lumbar spine normal to inspection, straight leg raise negative bilaterally, No thoraco-lumbar ROM limited and No lumbar spinal tenderness Skin Lesions: no lesions Rashes: no rashes Wounds: no wounds Neuro General: oriented to person, oriented to place, patient oriented x3, CN's II-XI intact bilaterally and No confusion Cranial nerves: Yes Equal, round and reactive pupils present and Yes Normal accommodation reflex present Cognition (Neuro): normal cognition Speech: No Abnormal speech present Gait exam (Neuro): Normal gait present Motor exam (neuro): 5/5 motor strength present throughout Extrem Right upper extremity: full ROM; no cyanosis Left upper extremity: full ROM; no cyanosis Right lower extremity: no edema Left lower extremity: no edema Psych Appearance: grossly normal Mental Status: mental status grossly normal Affect: normal affect Attitude: cooperative Thought process: Normal thought process present Coding Level of Care Code Est Pt Prev Care 18-39y([id number]) Diagnoses Annual physical exam Z00.00 Mixed hyperlipidemia E78.2 Hyperlipidemia type: mixed hyperlipidemia Lumbar spine pain M54.50 Class 3 obesity E66.813 TONE (generalized anxiety disorder) F41.1 Additional Codes TONE-7 Assessment Billing - TONE-7 Assessment Tool: TONE-7 Assessment [id number] ([id number]) Assessment & Plan Assessment & Plan (1) Annual physical exam: Code(s): Z00.00 - Encounter for general adult medical examination without abnormal findings Category: Medical Plan: As per HPI (2) HLD (hyperlipidemia): Code(s): E78.5 - Hyperlipidemia, unspecified Category: Medical Qualifiers: Hyperlipidemia type: mixed hyperlipidemia Qualified Code(s): E78.2 - Mixed hyperlipidemia Plan: Patient has a history of borderline high total cholesterol. Will continue working on lifestyle and dietary modifications. (3) Lumbar spine pain: Code(s): M54.50 - Low back pain, unspecified Category: Medical Plan: For the patient's chronic low back pain, an order for a new X-ray of the lower back will be placed. A prescription muscle relaxer will be sent for the patient to try as needed. The options of home care music therapist and physical therapy were discussed, including modalities like TENS units. Pain management injections were offered but declined by the patient. (4) Class 3 obesity: Code(s): E66.813 - Obesity, class 3 Category: Medical Plan: To investigate the difficulty with weight loss, fasting blood work will be ordered, including a metabolic panel to assess kidney and liver function, glucose, a lipid panel, thyroid studies, and a testosterone level. The patient was advised about a weight management program that includes non-surgical options with dietitians, though the patient declined interest in surgical options. (5) TONE (generalized anxiety disorder): Code(s): F41.1 - Generalized anxiety disorder Category: Medical Plan: Patient's TONE-7 score positive for anxiety which has been existing condition for him. Not interested in medication or therapy at this time. Orders: Orders TSH reflex Free T4 Today E66.813 - Obesity, class 3 Microalbumin, Random (w Creat) Today I10 - Essential (primary) hypertension Lipid Panel Today E78.2 - Mixed hyperlipidemia Testosterone, Free/Total Today E66.813 - Obesity, class 3 XR lumbar spine 2-3V Today M54.50 - Low back pain, unspecified Comprehensive [place]. Panel Fast Today I10 - Essential (primary) hypertension Complete Blood Count no Diff Today I10 - Essential (primary) hypertension Medications: New baclofen 10 mg PO BID PRN 20 tabs 0RF muscle spasm 10 days M54.50 - Low back pain, unspecified Refilled erythromycin 0.5 inches ophthalmic (eye) QID 3.5 grams 0RF omeprazole 20 mg PO DAILY 90 caps 1RF K21.9 - Gastro-esophageal reflux disease without esophagitis losartan 25 mg PO DAILY 90 tabs 1RF 90 days I10 - Essential (primary) hypertension ketoconazole 2% 1 appl topical 3XW 120 mL 1RF 6 weeks L21.9 - Seborrheic dermatitis, unspecified
[2025-01-09 11:58] VITALS: BP 120/62; PULSE 68; TEMP 36.3; O2SAT 96; BMI 40.2
== END 2025-01-09 12:23 | disposition home or self-care (01) ==
LOC: HO.HMCH 11:10
PROVIDERS: PCP Physician Assistant; Visit Provider Physician Assistant
DX: Z00.00 Encounter for general adult medical examination without abnormal findings (principal); E78.2 Mixed hyperlipidemia; M54.50 Low back pain, unspecified; E66.813 Obesity, class 3; F41.1 Generalized anxiety disorder; Z68.41 Body mass index [BMI] 40.0-44.9, adult

== ENCOUNTER → 2025-01-09 11:10 | Outpatient (BNVA) | payer OTHER, SELFPAY | PROVIDERS: PCP Physician Assistant; Visit Provider Physician Assistant | DX: Z00.00 Encounter for general adult medical examination without abnormal findings (principal); I10 Essential (primary) hypertension; K21.9 Gastro-esophageal reflux disease without esophagitis; E78.00 Pure hypercholesterolemia, unspecified; E66.813 Obesity, class 3; E78.2 Mixed hyperlipidemia; M54.50 Low back pain, unspecified; F41.1 Generalized anxiety disorder; Z68.41 Body mass index [BMI] 40.0-44.9, adult | CPT/HCPCS: 96127; 99395 ==

== ENCOUNTER 2025-01-16 08:59 | Outpatient (REF) | payer OTHER, SELFPAY ==
--- NOTE | ~2025-01-16 | XR_ITS ---
EXAMINATION: XR LUMBOSACRAL SPINE CLINICAL INFORMATION: M54.50 - Low back pain, unspecified COMPARISON: March 07, 2020 TECHNIQUE: Three views of the lumbosacral spine. FINDINGS: There are 5 nonrib-bearing lumbar segments. SI joints are symmetrical and unremarkable. There is stable mild wedging of T11 and T12 that is probably physiologic in nature. L3-4 demonstrates mild disc space narrowing and small posterior osteophyte. L4-5 demonstrates mild disc space narrowing. XR/XR lumbar spine 2-3V IMPRESSION: Mild degenerative disc disease L3-4 and L4-5, increased since the prior. Electronically signed by: Ricardo Soliz MD 01/16/2025 10:02 AM [facility]
[2025-01-16 09:46] LABS: Hematocrit 49.0 % (42.0-52.0); Hemoglobin 16.5 g/dl (14.0-18.0); Mean Corpuscular HGB Conc 33.7 g/dl (31.0-36.0); Mean Corpuscular Hemoglobin 29.2 pg (27.0-33.0); Mean Corpuscular Volume 86.6 fL (80.0-98.0); NRBC Abs Auto 0.000 X10*3/uL (0.0-0.012); NRBC Pct Auto 0.0 /100WBC (0.0-0.2); Platelet Count 318 X10*3/uL (160-400); Red Blood Count 5.66 X10*6/uL (4.60-5.80); White Blood Count 9.5 X10*3/uL (4.8-10.8)
[2025-01-16 10:37] LABS: Alanine Aminotransferase 73 U/L (0-40); Albumin Level 4.8 g/dL (3.5-5.0); Alkaline Phosphatase 95 U/L (39-117); Anion Gap 11 (12-20); Aspartate Amino Transferase 47 U/L (5-37); Blood Urea Nitrogen 15 mg/dL (9-16); Calcium 9.1 mg/dL (8.4-10.2); Carbon Dioxide 27 mmol/L (22-29); Chloride 109 mmol/L (96-108); Cholesterol 223 mg/dL (<200); Estimated Glomerular Filt Rate > 60; HDL Cholesterol 32 mg/dL (>40); Potassium 4.6 mmol/L (3.3-5.1); Sodium 142 mmol/L (135-145); Total Protein 7.7 g/dL (6.5-8.0); Triglycerides 200 mg/dL (<150)
[2025-01-16 11:34] LABS: Microalbum/Creatinine Ratio Ur 7.5 ug/mg cr (<30)
[2025-01-21 15:54] LABS: Testosterone, Free 85.2 pg/mL (35.0-155.0)
== END 2025-01-16 09:00 | disposition home or self-care (01) ==
LOC: HO.XRAY 08:59
PROVIDERS: PCP Physician Assistant; Visit Provider Physician Assistant
DX: E78.2 Mixed hyperlipidemia (principal); M54.50 Low back pain, unspecified; I10 Essential (primary) hypertension; E66.813 Obesity, class 3
CPT/HCPCS: 36415; 72100; 80053; 80061; 82043; 82570; 84402; 84403; 84443; 85027

== ENCOUNTER → 2025-01-16 09:25 | Outpatient (BNV) | payer OTHER, SELFPAY | PROVIDERS: PCP Physician Assistant; Visit Provider Radiology Diagnostic Radiology | DX: M51.360 Other intervertebral disc degeneration, lumbar region with discogenic back pain only (principal) | CPT/HCPCS: 72100 ==